=== PATIENT | male | born 1955 | race Caucasian/White ===

== ENCOUNTER → 2017-12-10 13:48 | Outpatient (CLI) | payer BC, SELFPAY ==
[2017-12-10 16:01] LABS: Prostate Specific Ag Screen 17.4 ng/mL (0.0-4.0)
== END ==
PROVIDERS: PCP Family Medicine; Visit Provider Urology
DX: Z12.5 Encounter for screening for malignant neoplasm of prostate (principal)
CPT/HCPCS: 36415; G0103

== ENCOUNTER → 2018-01-21 08:38 | Outpatient (CLI) | payer BC, SELFPAY ==
[2018-01-21 10:11] LABS: Prostate Specific Ag, Diagnost 11.32 ng/mL (0.0-4.0)
== END ==
PROVIDERS: Visit Provider Urology
DX: R97.20 Elevated prostate specific antigen [PSA] (principal)
CPT/HCPCS: 36415; 84153

== ENCOUNTER → 2018-01-22 07:46 | Outpatient (CLI) | payer BC, SELFPAY | PROVIDERS: Family Provider Family Medicine; PCP Family Medicine; Visit Provider Family Medicine | DX: I25.10 Atherosclerotic heart disease of native coronary artery without angina pectoris (principal) | CPT/HCPCS: 93017 ==

== ENCOUNTER → 2018-05-15 07:42 | Outpatient (CLI) | payer BC, SELFPAY ==
[2018-05-15 09:50] LABS: Prostate Specific Ag Screen 7.9 ng/mL (0.0-4.0)
== END ==
PROVIDERS: Visit Provider Urology
DX: R97.20 Elevated prostate specific antigen [PSA] (principal)
CPT/HCPCS: 36415; G0103

== ENCOUNTER → 2018-08-05 11:37 | Outpatient (CLI) | payer MEDICARE, BC, SELFPAY ==
[2018-08-06 11:35] LABS: PSA, Free 1.48 ng/mL; Prostate Specific Ag 6.3 ng/mL (0.0-4.0)
== END ==
PROVIDERS: PCP Family Medicine; Visit Provider Urology
DX: N40.1 Benign prostatic hyperplasia with lower urinary tract symptoms (principal); R97.20 Elevated prostate specific antigen [PSA]
CPT/HCPCS: 36415; 84153; 84154

== ENCOUNTER → 2018-11-11 11:12 | Outpatient (CLI) | payer MEDICARE, BC, SELFPAY ==
[2018-11-12 10:32] LABS: PSA, Free 1.67 ng/mL; Prostate Specific Ag 7.7 ng/mL (0.0-4.0)
== END ==
PROVIDERS: Visit Provider Urology
DX: R97.20 Elevated prostate specific antigen [PSA] (principal)
CPT/HCPCS: 36415; 84153; 84154

== ENCOUNTER → 2018-11-20 08:52 | Outpatient (CLI) | payer MEDICARE, BC, SELFPAY ==
[2018-11-20 10:48] LABS: Alanine Aminotransferase 33 U/L (12-78); Albumin Level 3.7 gm/dL (3.4-5.0); Alkaline Phosphatase 86 U/L (46-116); Aspartate Amino Transferase 25 U/L (15-37); Bilirubin,Direct 0.1 mg/dL (0.0-0.2); Bilirubin,Indirect 0.2 mg/dL (0.0-0.9); Bilirubin,Total 0.3 mg/dL (0.2-1.0); Chol/HDL Ratio 4.9 (1-3.5); Cholesterol 132 mg/dL (140-200); HDL Cholesterol 27 mg/dL (27-67); LDL Cholesterol 56 mg/dL (0-130); Total Protein,Serum 6.7 gm/dL (6.4-8.2); Triglycerides 245 mg/dL (30-200); VLDL Cholesterol 49 mg/dL (0-40)
== END ==
PROVIDERS: Visit Provider Urology
DX: E78.5 Hyperlipidemia, unspecified (principal); I11.9 Hypertensive heart disease without heart failure; I25.10 Atherosclerotic heart disease of native coronary artery without angina pectoris; I42.9 Cardiomyopathy, unspecified; I25.2 Old myocardial infarction
CPT/HCPCS: 36415; 80061; 80076

== ENCOUNTER → 2018-11-21 09:53 | Outpatient (CLI) | payer MEDICARE, BC, SELFPAY ==
--- NOTE | 2018-11-21 09:57 | CA_ITS ---
PROCEDURE: 2-D M-mode and color Doppler study INDICATIONS FOR THE TEST: Chest pain COPD Heart Murmur Tobacco Smoking Palpitations Fatigue Syncope Edema Hypertension+Diabetes Mellitus Rheumatic Fever SOB+DUPONT Obesity Hyperlipidemia+ Family History HD Additional History PACER,HX CM PATIENT INFORMATION HEIGHT: 70 WEIGHT:220 GENDER: Male B/P:114/72 2-D/M-MODE INTERPRETATION: 2-D MEASUREMENTS OBSERVED VALUES IN CMS Right Ventricular Dimension (RVDd) 2.6 Interventricular Septum (Thickness)(IVsd) 1.0 Left Ventricular Internal Dimensions(LVIDd) 5.9 Left Ventricular Posterior Wall (Thickness)(LVPWd) 0.8 Aortic Root 3.6 Aortic Cusp Separation 2.1 Left Atrial Dimensions (LAD) 4.5 2D 1. 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 2. The right atrium and right ventricle are mildly enlarged with normal contractility, there is pacemaker lead seen right ventricle. 3. The aortic valve is minimally thickened and fibrosed. 4. The mitral and tricuspid valve leaflets are minimally thickened and calcified. 5.The pulmonic valve is poorly visualized. 6. No significant pericardial effusion noted. DOPPLER INTERROGATION: Doppler interrogation of the aortic, mitral and tricuspid valve shows presence of mild mitral and tricuspid regurgitation, tricuspid regurgitant jet velocity is inadequate for calculation of the right ventricular systolic pressure, diastolic dysfunction seen with tissue Doppler evidence of raised left atrial pressure. CONCLUSION: 1. 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 Grade 1 diastolic dysfunction seen with tissue Doppler evidence of raised left atrial pressure. 2. Mild mitral and tricuspid regurgitation 3. No significant pericardial effusion noted.
== END ==
PROVIDERS: PCP Family Medicine; Visit Provider Internal Medicine
DX: I25.2 Old myocardial infarction (principal)
CPT/HCPCS: 93306

== ENCOUNTER → 2018-12-05 11:46 | Outpatient (CLI) | payer MEDICARE, BC, SELFPAY ==
--- NOTE | 2018-12-05 11:49 | NM_ITS ---
History and Indications: Coronary artery disease, previous DC, tobacco use, family history, shortness of breath, fatigue and abnormal echo Procedure: Patient received a 0.4 mg of intravenous Lexiscan, resting heart rate was 70 bpm, resting blood pressure 108/74, with Lexiscan heart rate achieved was 82 bpm, which is less than 85% of the maximum predicted heart rate and a blood pressure was 84/47. Lexiscan patient denied any complained of chest pain or shortness of breath. Electrocardiogram: Resting echocardiogram showed sinus rhythm inferior infarct age indeterminate, with Lexiscan there is less than 1.[address] segment depression noted from the baseline EKG. The EKG portion of the Lexiscan Myoview is nondiagnostic. Cardiac stress and resting SPECT images: Headaches stress and resting SPECT images were obtained using technetium 99 Myoview 31.4 mCi at stress and 10.2 degrees at rest. Gated SPECT further analysis of segmental wall motion and calculation of ejection fraction. Cardiac stress and the suspect images show a fixed defect involving the inferior and posterobasal wall consistent with area of myocardial scarring without significant howard-infarct ischemia, computer derived ejection fraction is 53% with marked hypokinesis involving the inferior and posterobasal wall, right ventricle is normal size and contractility. Conclusion: 1. The EKG portion of the Lexiscan Myoview is nondiagnostic. 2. Scintigraphic evidence of myocardial scarring involving the inferior and posterobasal wall without significant howard-infarct ischemia, computer derived ejection fraction is 53% segmental wall motion abnormality described above, right ventricle is normal size and contractility. 3. Abnormal Lexiscan Myoview study.
--- NOTE | 2018-12-05 14:03 | HMH.ITSHM ---
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 []fenofibrate lipitor bisoprolol tamsulosin aspirin plavix finasteride pantoprazole allopurinol
== END ==
PROVIDERS: PCP Family Medicine; Visit Provider Internal Medicine
DX: I25.2 Old myocardial infarction (principal)
CPT/HCPCS: 78452; 93017; A9502; J2785

== ENCOUNTER → 2019-02-17 11:15 | Outpatient (CLI) | payer MEDICARE, BC, SELFPAY ==
[2019-02-17 12:52] LABS: Prostate Specific Ag, Diagnost 7.14 ng/mL (0.0-4.0)
== END ==
PROVIDERS: Visit Provider Urology
DX: R97.20 Elevated prostate specific antigen [PSA] (principal)
CPT/HCPCS: 36415; 84153

== ENCOUNTER → 2019-05-22 07:16 | Outpatient (CLI) | payer MEDICARE, BC, SELFPAY ==
[2019-05-22 08:24] LABS: Alanine Aminotransferase 26 U/L (12-78); Bilirubin,Direct 0.1 mg/dL (0.0-0.2); Blood Urea Nitrogen 20 mg/dL (7-18); Potassium 4.2 mmoL/L (3.5-5.1); Total Protein,Serum 6.3 gm/dL (6.4-8.2); Triglycerides 75 mg/dL (30-200); VLDL Cholesterol 15 mg/dL (0-40)
[2019-05-22 08:25] LABS: Albumin Level 3.6 gm/dL (3.4-5.0)
[2019-05-22 08:40] LABS: Alkaline Phosphatase 59 U/L (46-116); Anion Gap 10.2 mEq/L (5-15); Aspartate Amino Transferase 22 U/L (15-37); Bilirubin,Indirect 0.3 mg/dL (0.0-0.9); Bilirubin,Total 0.4 mg/dL (0.2-1.0); Calcium 8.6 mg/dL (8.5-10.1); Carbon Dioxide 28 mmol/L (21.0-32.0); Chloride 109 mmol/L (98-107); Chol/HDL Ratio 3.2 (1-3.5); Cholesterol 114 mg/dL (140-200); Creatinine,Serum 1.49 mg/dL (0.70-1.30); Estimated Glomerular Filt Rate 47 ml/min (>60); GFR (African American) 57 ML/MIN (>60); Glucose 89 mg/dL (74-106); HDL Cholesterol 36 mg/dL (27-67); LDL Cholesterol 63 mg/dL (0-130); Sodium 143 mmol/L (136-145)
== END ==
PROVIDERS: Visit Provider Urology
DX: I11.9 Hypertensive heart disease without heart failure; I25.10 Atherosclerotic heart disease of native coronary artery without angina pectoris; E78.5 Hyperlipidemia, unspecified; I25.2 Old myocardial infarction; Z95.5 Presence of coronary angioplasty implant and graft
CPT/HCPCS: 36415; 80048; 80061; 80076

== ENCOUNTER → 2019-08-25 12:00 | Outpatient (CLI) | payer MEDICARE, BC, SELFPAY ==
[2019-08-25 17:02] LABS: Prostate Specific Ag, Diagnost 6.92 ng/mL (0.0-4.0)
== END ==
PROVIDERS: Visit Provider Urology
DX: R97.20 Elevated prostate specific antigen [PSA] (principal)
CPT/HCPCS: 36415; 84153

== ENCOUNTER → 2019-09-21 10:03 | Outpatient (CLI) | payer MEDICARE, BC, SELFPAY ==
--- NOTE | 2019-09-21 10:10 | XR_ITS ---
PROCEDURE: XR CHEST 2V CLINICAL HISTORY: pain at pacer site COMPARISON: CXR1 CHEST-PORTABLE from 11/28/2014 CXR CHEST(2 VIEWS-NOT PORTABLE) from 04/02/2015 FINDINGS: The cardiomediastinal silhouette and pulmonary vascularity are within normal limits. There is a bipolar pacemaker present from the left subclavian approach. The leads are in good position. No significant change in the positioning of the pacemaker since 04/02/2015. Calcified granuloma is present in the right lower lobe. The remaining lungs are clear. No acute bony finding. IMPRESSION: No change with no acute finding. Pacemaker present with no obvious complications Dictated by: Rod Campbell MD 09/21/2019 12:41 Electronically signed by Rod Campbell MD in [place] 09/21/2019 12:41
== END ==
PROVIDERS: PCP Family Medicine; Visit Provider Internal Medicine
DX: R52 Pain, unspecified (principal); Z95.0 Presence of cardiac pacemaker
CPT/HCPCS: 71046

== ENCOUNTER → 2019-12-15 10:10 | Outpatient (CLI) | payer MEDICARE, BC, SELFPAY ==
--- NOTE | 2019-12-15 10:14 | XR_ITS ---
PROCEDURE: XR KUB CLINICAL INDICATION: kidney stones Follow-up kidney stone COMPARISON: CT ABDOMEN PELVIS WO CON from 12/05/2019 FINDINGS: Previously there was a mid ureteral stone on the left which is no longer apparent. There is a small calcific density overlying the mid aspect of the left kidney at 3 mm consistent with left nephrolithiasis. IMPRESSION: Left nephrolithiasis Dictated by: Rod Campbell MD 12/15/2019 11:54 Electronically signed by Rod Campbell MD in [place] 12/15/2019 11:54
[2020-01-08 18:20] LABS: Specimen Type NOT PROVIDED
[2020-01-08 18:21] LABS: Composition SEE BELOW:
[2020-01-08 18:22] LABS: Photo TO FOLLOW
== END ==
PROVIDERS: PCP Family Medicine; Visit Provider Urology
DX: N20.0 Calculus of kidney (principal)
CPT/HCPCS: 74018; 82370; 87086; 87088; 87186

== ENCOUNTER → 2019-12-15 14:56 | Outpatient (CLI) | payer MEDICARE, BC, SELFPAY | PROVIDERS: Visit Provider Urology | DX: N20.0 Calculus of kidney (principal) | CPT/HCPCS: 74018; 82370; 87086; 87088; 87186 ==

== ENCOUNTER → 2019-12-29 08:31 | Outpatient (CLI) | payer MEDICARE, BC, SELFPAY ==
--- NOTE | 2019-12-29 08:34 | XR_ITS ---
PROCEDURE: XR KUB CLINICAL INDICATION: LT KIDNEY STONE COMPARISON: CT ABDOMEN PELVIS WO CON from 12/05/2019 XR KUB from 12/15/2019 FINDINGS: There is a small calcific density over the lower pole of the left kidney consistent with a 3 mm renal stone. A thin linear calcific density is present overlying the sacrum on the left probably related to a vascular calcification. No definite ureteral calculi. IMPRESSION: Left nephrolithiasis Dictated by: Rod Campbell MD 12/29/2019 12:15 Electronically signed by Rod Campbell MD in [place] 12/29/2019 12:15
[2019-12-29 12:12] LABS: Chloride 104 mmol/L (98-107); Potassium 4.6 mmoL/L (3.5-5.1); Sodium 138 mmol/L (136-145)
[2019-12-29 12:14] LABS: Blood Urea Nitrogen 20 mg/dl (9-20); Estimated Glomerular Filt Rate 43 ml/min (>60); GFR (African American) 53 ML/MIN (>60)
[2019-12-29 12:15] LABS: Anion Gap 11.6 mEq/L (5-15); Calcium 9.3 mg/dl (8.4-10.2); Carbon Dioxide 27 mmol/L (22.0-30.0); Glucose 79 mg/dl (74-100)
== END ==
PROVIDERS: PCP Family Medicine; Visit Provider Urology
DX: N20.0 Calculus of kidney (principal)
CPT/HCPCS: 36415; 74018; 80048

== ENCOUNTER → 2020-02-26 09:46 | Outpatient (CLI) | payer MEDICARE, BC, SELFPAY ==
[2020-02-27 11:17] LABS: PSA, Free 1.91 ng/mL; Prostate Specific Ag 8.2 ng/mL (0.0-4.0)
== END ==
PROVIDERS: Visit Provider Urology
DX: R97.20 Elevated prostate specific antigen [PSA] (principal)
CPT/HCPCS: 36415; 84153; 84154

== ENCOUNTER → 2020-03-24 10:05 | Outpatient (CLI) | payer MEDICARE, BC, SELFPAY ==
[2020-03-24 10:33] LABS: Blood Urea Nitrogen 15 mg/dl (9-20)
[2020-03-24 10:34] LABS: Estimated Glomerular Filt Rate 55 ml/min (>60); GFR (African American) 67 ML/MIN (>60)
--- NOTE | 2020-03-24 10:51 | CT_ITS ---
PROCEDURE: CT HEAD/BRAIN WO/W CON CLINICAL INDICATION: poss left acoustic neuroma Hearing loss in the left ear new onset COMPARISON: CXR CHEST(2 VIEWS-NOT PORTABLE) from 04/02/2015 TECHNIQUE: IV Contrast: 100ML OPITRAY 320 The Axial images obtained. All CT scans at the facility use one or more dose reduction, viz: automated exposure control, ma/kV adjustment per patient size (including targeted exams where dose is matched to indication, i.e. head), or iterative reconstruction technique. FINDINGS: No midline shift, mass effect, intracranial hemorrhage, hydrocephalus, or extra-axial fluid collection is evident. No enhancing lesions are evident.. There is no evidence a CP angle mass. The acoustic foramen are symmetric. The calvarium has an unremarkable appearance. No mastoid effusion there is complete opacification of the right maxillary sinus with some increased density of the opacified sinus and enhancement consistent with chronic inflammatory changes. IMPRESSION: 1. Negative CT head without and with contrast. No evidence of acoustic neuroma. 2. Chronic right maxillary sinusitis Dictated by: Rod Campbell MD 03/24/2020 13:04 Electronically signed by Rod Campbell MD in [place] 03/24/2020 13:04
== END ==
PROVIDERS: PCP Family Medicine; Visit Provider Otolaryngology
DX: D33.3 Benign neoplasm of cranial nerves (principal); H93.12 Tinnitus, left ear
CPT/HCPCS: 36415; 70470; 82565; 84520; Q9967

== ENCOUNTER → 2020-04-04 15:59 | Outpatient (CLI) | payer MEDICARE, BC, SELFPAY | PROVIDERS: Visit Provider Urology | DX: N39.0 Urinary tract infection, site not specified (principal) | CPT/HCPCS: 87086; 87088; 87186 ==

== ENCOUNTER → 2020-04-15 09:01 | Outpatient (CLI) | payer MEDICARE, BC, SELFPAY ==
[2020-04-15 10:33] LABS: Coronavirus 19 IgG Antibody Negative (Negative); Coronavirus 19 IgM Antibody Negative (Negative)
== END ==
PROVIDERS: Visit Provider Internal Medicine Gastroenterology
DX: Z01.818 Encounter for other preprocedural examination (principal)
CPT/HCPCS: 36415; 86328

== ENCOUNTER 2020-04-18 10:56 | Day surgery (SDC) | payer MEDICARE, BC, SELFPAY ==
[2020-04-14 10:24] VITALS: BMI 28.7
[2020-04-18 11:08] VITALS: BP 102/69; PULSE 69; RESP 18; TEMP 36.2; O2SAT 97
[2020-04-18 11:32] VITALS: O2SAT 99
--- NOTE | 2020-04-18 11:41 | HMH.ANESCL ---
[facility] Anesthesia Checklist - Patient Identification Patient Identification: Arm Band - Structural Data Admitted From: Home Planned Operative Procedure/s: colonoscopy Consent for Planned Operative Procedure(s) Verified: Yes Verified Documents: Surgical Consent, History and Physical - NPO Status Verified Time NPO: 00:00 - Additional verifications Anesthesia Reactions: No Hx Blood Transfusions: No Blood Transfusion Reaction: No - Airway Assessment C-Spine Mobility Assessed: Yes (mp2) TMJ Mobility Assessed: Yes Dentition: Good Dentition - Neurological Assessment Level of Consciousness: Awake, Alert - Anesthesia Plan Anesthesia Risk discussed: Yes Anesthesia Plan: Verified ASA Class: III Anesthesia Type: MAC [facility] History I have reviewed the patient's past medical history: Yes Medical History: Reports:: Coronary Artery Disease, Hyperlipidemia, Internal Pacemaker, Kidney Stones, Myocardial Infarction Denies:: Cancer, Diabetes Mellitus Type 1, Diabetes Mellitus Type 2, Hypertension, MRSA, Seizures *Have you ever received a pneumonia vaccine?: Yes *Have you received a flu vaccine this season?: Yes Other Medical History: Reports: Arthritis, Other (PACEMAKER). Denies: Blood Transfusion Reaction Anesthesia experience/problems:: nac Other Surgeries: Yes: Angioplasty, Colonoscopy, Pacemaker, Other (PACEMAKER) Amputation: No Fractures: No - *Social History Educational Level: Completed High School Smoking Status: Never smoker Alcohol Intake: never Alcohol Intake Frequency:: other Substance Use Type: denies use *Occupational Status:: retired Housing: house Household Members: spouse *Travel in the last 8 weeks: None Family Hx:: Cancer, Heart Attack
--- NOTE | 2020-04-18 12:05 | P.PCN_ITS ---
[facility] Procedure Note Procedure Note:: Colonoscopy Procedure Report: Colonoscopy with cold snare polypectomy Endoscopist: Jad Ramires II, MD Referring physician: Rolo Villalobos MD Date of Procedure: April 18, 2020 Equipment: Olympus 180 variable stiffness pediatric colonoscope Sedation: MAC sedation Indication: Mr. Bernard is a 64-year-old gentleman who is here for follow-up screening/surveillance colonoscopy. The patient does have a personal history of colon polyps. He has had 5 or 6 colonoscopies since the age of 48. His last c olonoscopy was in October 2016 and he had a single polyp (hyperplastic polyp x1) removed. He does state that his paternal grandmother had colon cancer. He reports no abdominal pain, weight loss, change in his bowel habits or rectal bleeding. Procedure: Prior to the procedure, a history and physical exam was performed, and patient's medications and allergies were reviewed. The risks, benefits and alternatives of the sedation and procedure were discussed with the patient. All questions were answered and informed consent was obtained. The patient was brought to the procedure room. Patient identification and proposed procedure were verified by the physician and the nurse. The patient was placed in a left lateral decubitus position and the scope was passed under direct vision. Throughout the procedure, the patient's blood pressure, pulse, and oxygen saturations were monitored continuously. The colonoscopy was accomplished without difficulty. The patient tolerated the procedure well. Findings: On digital rectal examination there was normal rectal tone. There were no external hemorrhoids. The prostate was 2+, mildly asymmetric on right upper/lateral margin but without significant firmness or nodules. The colonoscope was introduced through the anal canal to the rectum and advanced to the cecum. The ileocecal valve and appendiceal orifice were identified. The scope was advanced a short distance into the ileum which appeared grossly normal. The scope was then withdrawn into the colon. There were 2 colon polyps (cecum x1 (6 mm) and transverse x1 (3 mm)) which were removed via cold snare polypectomy. There were scattered diverticuli throughout the descending and sigmoid colon (LEFT colon). The rectum itself was normal. Upon retroflexion within the rectum there were grade 1-2 internal hemorrhoids. The preparation was excellent throughout with Casar Preparation Score of 9. The cecal time was 12 minutes. Impression: 1. Colonic polyps x2 2. Left-sided diverticulosis 3. Mild prostate asymmetry 4. Grade 1-2 internal hemorrhoids Plan: I will follow up the polyp pathology and recommend repeat colonoscopy again in 5-7 years based upon the polyp histology. I would encourage bulk fiber supplementation on a long-term daily maintenance basis.
[2020-04-18 12:07] VITALS: BP 80/55; PULSE 70; RESP 18; TEMP 36.2; O2SAT 91
[2020-04-18 12:27] VITALS: BP 81/53; BP 88/56; PULSE 70; RESP 18; O2SAT 92; O2SAT 93
[2020-04-18 12:37] VITALS: BP 107/68; PULSE 70; RESP 18; O2SAT 93
--- NOTE | 2020-04-18 12:47 | PC.NURSE ---
recommended Konsul daily.
[2020-04-18 12:50] VITALS: BP 107/64; PULSE 68; RESP 18; O2SAT 94
== END 2020-04-18 12:50 | disposition home or self-care (01) ==
LOC: OUTP 10:57
PROVIDERS: PCP Family Medicine; Visit Provider Internal Medicine Gastroenterology
PROC: 0DJD8ZZ Inspection of Lower Intestinal Tract, Via Natural or Artificial Opening Endoscopic (ICD-10-PCS; CPT 45378; principal; 2020-04-18 13:00)
DX: Z12.11 Encounter for screening for malignant neoplasm of colon (principal); Z86.010 Personal history of colon polyps; K63.5 Polyp of colon; K57.30 Diverticulosis of large intestine without perforation or abscess without bleeding; K64.0 First degree hemorrhoids; I10 Essential (primary) hypertension; E78.5 Hyperlipidemia, unspecified; I25.10 Atherosclerotic heart disease of native coronary artery without angina pectoris; Z95.0 Presence of cardiac pacemaker; Z95.818 Presence of other cardiac implants and grafts
CPT/HCPCS: 45385; 88305

== ENCOUNTER → 2020-05-09 11:23 | Outpatient (CLI) | payer MEDICARE, BC, SELFPAY ==
--- NOTE | 2020-05-09 11:50 | XR_ITS ---
PROCEDURE: XR LUMBAR SPINE MIN 4V CLINICAL INDICATION: HIP PAIN ACUTE Low back pain on the left COMPARISON: CT ABDOMEN PELVIS WO CON from 12/05/2019 FINDINGS: There is normal alignment. No fracture or dislocation is evident. There is mild degenerative disc disease at L2-L3 and L5-S1. Mild facet hypertrophic changes are present at L5-S1. No fracture or dislocation. Mild angulation posteriorly of the coccyx which could be due to an old injury. IMPRESSION: Mild degenerative changes, no acute finding Dictated by: Rod Campbell MD 05/09/2020 12:27 Electronically signed by Rod Campbell MD in [place] 05/09/2020 12:27
--- NOTE | 2020-05-09 11:50 | XR_ITS ---
PROCEDURE: XR HIP LT 2-3V W/PELVIS CLINICAL INDICATION: HIP PAIN, ACUTE COMPARISON: No exams were available for comparison FINDINGS: There are minimal degenerative changes of the left hip with slight decrease in the hip joint space superiorly and minimal osteophyte formation along the acetabulum. No fracture or dislocation. No lytic or blastic change. IMPRESSION: Mild degenerative change Dictated by: Rod Campbell MD 05/09/2020 12:28 Electronically signed by Rod Campbell MD in [place] 05/09/2020 12:28
== END ==
PROVIDERS: PCP Family Medicine; Visit Provider Nurse Practitioner Family
DX: M25.552 Pain in left hip (principal); M54.5 Low back pain
CPT/HCPCS: 72110; 73502

== ENCOUNTER → 2020-05-13 08:21 | Outpatient (CLI) | payer MEDICARE, BC, SELFPAY ==
[2020-05-13 10:48] LABS: Coronavirus 19 IgG Antibody Negative (Negative); Coronavirus 19 IgM Antibody Negative (Negative)
== END ==
PROVIDERS: Visit Provider Urology
DX: Z01.818 Encounter for other preprocedural examination (principal)
CPT/HCPCS: 36415; 86328

== ENCOUNTER 2020-05-16 07:33 | Day surgery (SDC) | payer MEDICARE, BC, SELFPAY ==
[2020-05-16 07:55] VITALS: BMI 28.7
[2020-05-16 07:56] VITALS: BP 107/81; PULSE 70; RESP 18; TEMP 36.3; O2SAT 97
--- NOTE | 2020-05-16 08:54 | P.PN_ITS ---
[facility] Anesthesia Checklist - Patient Identification Patient Identification: Arm Band, Verbal (Name & ) - Structural Data Admitted From: Home Planned Operative Procedure/s: prostate bx Consent for Planned Operative Procedure(s) Verified: Yes Verified Documents: History and Physical - NPO Status Verified Time NPO: 00:00 - Chart Verification Results Verified: CBC, BMP - Additional verifications Patient : No Anesthesia Reactions: No Hx Blood Transfusions: No Blood Transfusion Reaction: No Cephalosporin Allergy: No Previous Colonoscopy: Yes - Cardiovascular Assessment Heart Sounds: S1 & S2 Pulse Strength: Baseline Pulse Rhythm: Regular Peripheral Edema: No - Airway Assessment C-Spine Mobility Assessed: Yes TMJ Mobility Assessed: Yes Dentition: Good Dentition - Neurological Assessment Level of Consciousness: Awake, Alert, Appropriate Hx Seizures: No Numbness or tingling in extremities: No - Anesthesia Plan Anesthesia Risk discussed: Yes Anesthesia Plan: Verified ASA Class: III Anesthesia Type: MAC [facility] History I have reviewed the patient's past medical history: Yes Medical History: Reports:: Coronary Artery Disease, Hyperlipidemia, Internal Pacemaker, Kidney Stones, Myocardial Infarction Denies:: Cancer, Diabetes Mellitus Type 1, Diabetes Mellitus Type 2, Hypertension, MRSA, Seizures *Have you ever received a pneumonia vaccine?: Yes *Have you received a flu vaccine this season?: Yes Other Medical History: Reports: Arthritis, Other (PACEMAKER). Denies: Blood Transfusion Reaction Anesthesia experience/problems:: none Other Surgeries: Yes: No Previous Surgery, Angioplasty, Colonoscopy, Pacemaker, Other (PACEMAKER) Amputation: No Fractures: No - *Social History Last grade of school completed: 11th or 12th Smoking Status: Never smoker Alcohol Intake: never Alcohol Intake Frequency:: other Substance Use Type: denies use *Occupational Status:: retired Housing: house Household Members: spouse *Travel in the last 8 weeks: None Family Hx:: Cancer, Heart Attack
[2020-05-16 09:58] VITALS: BP 117/75; PULSE 70; RESP 18; TEMP 36.2; O2SAT 96
[2020-05-16 10:08] VITALS: BP 127/86; PULSE 71; RESP 18; O2SAT 96
[2020-05-16 10:18] VITALS: BP 128/81; PULSE 70; RESP 18; O2SAT 97
[2020-05-16 10:28] VITALS: BP 123/79; PULSE 69; RESP 18; O2SAT 96
--- NOTE | 2020-05-16 12:15 | HMH.OPNOTE ---
Date of procedure: 05/16/20 Pre-op Diagnosis:: Elevated PSA Post-op Diagnosis:: Elevated PSA Procedure performed:: Prostate biopsy with transrectal ultrasound guidance Surgeon:: Tom Ralph MD HORSE FARM MANAGER:: Teofilo Walker Anesthesia: MAC Estimated blood loss (mL): 2 Clinical Note:: 64-year-old white male with elevated PSA presents for transrectal ultrasound and prostate biopsy. Operative findings:: Prostate measured at 46 cm?. There is no evidence of hypoechoic or hyperechoic lesions. There is some firmness to the right side of the prostate on digital rectal exam. Operative note:: Patient taken to the operating room after informed consent was obtained. Was placed on the operating room table and monitored anesthesia care administered. He was then placed into the left lateral decubitus position. He was on oral antibiotics prior to the procedure as instructed. He was not given instructions for an enema and we discussed that this is an optional preoperative measure. Digital rectal examination showed a small area of firmness on the right side of the prostate. Transrectal ultrasound was placed into the rectum and the prostate was easily visualized. It was measured at 46 cm?. There is no evidence of hypoechoic or hyperechoic lesions. Local anesthetic placed into each neurovascular bundle and 12 biopsies been taken in a systematic fashion. There is minimal bleeding present. The probe removed and the patient tolerated procedure well. There were no complications. He was discharged to recovery room with routine instructions. Patient is to call me on for the results. Condition: stable Disposition: same day Specimens:: Prostate biopsies x12 Complications:: None
== END 2020-05-16 10:35 | disposition home or self-care (01) ==
LOC: OR 07:36
PROVIDERS: PCP Family Medicine; Visit Provider Urology
DX: R97.20 Elevated prostate specific antigen [PSA] (principal); N18.9 Chronic kidney disease, unspecified; I25.10 Atherosclerotic heart disease of native coronary artery without angina pectoris; M19.90 Unspecified osteoarthritis, unspecified site; Z87.442 Personal history of urinary calculi; Z79.82 Long term (current) use of aspirin; Z79.899 Other long term (current) drug therapy; Z95.0 Presence of cardiac pacemaker
CPT/HCPCS: 55700; 76942; 88305

== ENCOUNTER → 2020-05-31 07:54 | Outpatient (CLI) | payer MEDICARE, BC, SELFPAY ==
[2020-05-31 08:34] LABS: Basophils % 1.1 % (0.1-2.0); Eosinophils # 0.2 K/mm3 (0.0-0.4); Eosinophils % 3.7 % (0.1-12.0); Hematocrit 46.1 % (42.0-52.0); Hemoglobin 15.7 g/dL (14.1-18.0); Lymphocytes # 1.5 K/mm3 (0.7-4.5); Lymphocytes % 36.5 % (10-50); Mean Corpuscular Hemoglobin 33.1 pg (27.0-31.2); Mean Corpuscular Volume 97.1 fl (80-94); Monocytes # 0.3 K/mm3 (0.1-1.0); Monocytes % 6.6 % (1.7-9.3); Neutrophils # 2.1 K/mm3 (1.8-7.8); Platelet Count 177 K/mm3 (142-424); Red Blood Count 4.75 M/mm3 (4.60-6.20); Red Cell Distribution Width 13.5 % (11.5-17.5)
[2020-05-31 09:06] LABS: Alanine Aminotransferase 22 U/L (12-78); Alkaline Phosphatase 47 U/L (38-126); Aspartate Amino Transferase 33 U/L (17-59); Bilirubin,Direct 0.1 mg/dl (0.0-0.4); Bilirubin,Indirect 0.5 mg/dL (0.0-0.9); Bilirubin,Total 0.6 mg/dl (0.2-1.3); Bilirubin,Unconjugated 0.6 mg/dL (0.0-1.1)
[2020-05-31 09:07] LABS: Albumin Level 4.2 g/dl (3.5-5.0); Chol/HDL Ratio 3.1 (1-3.5); Cholesterol 154 mg/dl (140-200); HDL Cholesterol 50 mg/dl (40-60); Total Protein,Serum 6.7 g/dl (6.3-8.2); Triglycerides 124 mg/dl (30-150); VLDL Cholesterol 25 mg/dL (0-40)
[2020-05-31 09:10] LABS: Albumin Level 4.3 g/dl (3.5-5.0); Anion Gap 13.7 mEq/L (5-15); Blood Urea Nitrogen 22 mg/dl (9-20); Calcium 9.4 mg/dl (8.4-10.2); Carbon Dioxide 27 mmol/L (22.0-30.0); Chloride 105 mmol/L (98-107); Estimated Glomerular Filt Rate 51 ml/min (>60); GFR (African American) 61 ML/MIN (>60); Glucose 100 mg/dl (74-100); Phosphorous 3.4 mg/dl (2.5-4.5); Potassium 4.7 mmoL/L (3.5-5.1); Sodium 141 mmol/L (136-145)
[2020-05-31 09:18] LABS: Direct LDL Cholesterol 92.17 mg/dL (100-129)
[2020-05-31 09:27] LABS: 25-OH Vitamin D, Total 34.5 ng/mL (30-100)
[2020-05-31 10:35] LABS: Microscopic, Urine URINE MICROSCOPIC (MICROSCOPIC)
[2020-05-31 10:48] LABS: Appearance,Urine CLEAR (Clear); Bilirubin,Urine Negative (Negative); Blood, Urine Negative (Negative); Color,Urine YELLOW (Yellow); Glucose,Urine (UA) Negative (Negative); Ketones,Urine Negative (Negative); Leukocyte Esterase,Urine Negative (Negative); Nitrate,Urine Negative (Negative); PH,Urine 5.5 (5.0-8.5); Protein,Urine Negative (Negative); Specific Gravity, Urine 1.025 (1.005-1.030); Urobilinogen,Urine 0.2 EU/dl (0.2)
[2020-05-31 11:05] LABS: Squamous Epithelial Cell,Urine Occasional #/hpf (0-5)
[2020-05-31 11:18] LABS: Creatinine,Urine Random 138 mg/dL (Not Estab.)
== END ==
PROVIDERS: Internal Medicine Nephrology; PCP Family Medicine; Visit Provider Nurse Practitioner Family
DX: E11.9 Type 2 diabetes mellitus without complications (principal); E78.2 Mixed hyperlipidemia; I11.9 Hypertensive heart disease without heart failure; N18.3 Chronic kidney disease, stage 3 (moderate)
CPT/HCPCS: 36415; 80061; 80069; 80076; 81001; 82306; 82570; 83970; 84155; 85025

== ENCOUNTER → 2020-06-17 13:33 | Outpatient (CLI) | payer MEDICARE, BC, SELFPAY ==
--- NOTE | 2020-06-17 13:36 | CT_ITS ---
PROCEDURE: CT LUMBAR SPINE WO CON CLINICAL HISTORY: L LUMBAR RADICULOPATHY Left-sided low back pain, left-sided sciatic COMPARISON: CR XR LUMBAR SPINE MIN 4V from 05/09/2020 TECHNIQUE: Axial images obtained with sagittal and coronal reformats. All CT scans at the facility use one or more dose reduction, viz: automated exposure control, ma/kV adjustment per patient size (including targeted exams where dose is matched to indication, i.e. head), or iterative reconstruction technique. FINDINGS: There is normal alignment. No fracture or dislocation is evident. L2-L3: Minimal bulging disc. L3-L4: Minimal bulging disc. There is somewhat corrugated appearance of the L4 vertebral body which may represent hemangiomatous involvement L4-5: Mild bulging disc slightly eccentric toward the left with mild facet hypertrophic change and mild left lateral recess and foraminal narrowing. There is slight increased soft tissue density within the left neural foramen at this level. This is incompletely evaluated by CT. Consider MRI without and with contrast for further evaluation. L5-S1: Minimal bulging disc with mild degenerative disc disease. There is mild sclerosis of the right SI joint. IMPRESSION: 1. L2-L3: Minimal bulging disc. 2. L3-L4: Minimal bulging disc. There is somewhat corrugated appearance of the L4 vertebral body which may represent hemangiomatous involvement 3. L4-5: Mild bulging disc slightly eccentric toward the left with mild facet hypertrophic change and mild left lateral recess and foraminal narrowing. There is slight increased soft tissue density within the left neural foramen at this level. Differential diagnosis would include an extruded disc versus a nerve sheath tumor. This is incompletely evaluated by CT. Consider MRI without and with contrast for further evaluation. 4. L5-S1: Minimal bulging disc with mild degenerative disc disease. 5. There is mild sclerosis of the right SI joint. Dictated by: Rod Campbell MD 06/17/2020 14:33 Rod Campbell MD in [place] 06/17/2020 14:33
== END ==
PROVIDERS: PCP Family Medicine; Visit Provider Family Medicine
DX: M54.16 Radiculopathy, lumbar region (principal)
CPT/HCPCS: 72131

== ENCOUNTER → 2020-08-26 13:50 | Outpatient (CLI) | payer MEDICARE, BC, SELFPAY ==
[2020-08-28 15:28] LABS: Prostate Specific Ag 5.7 ng/mL (0.0-4.0)
== END ==
PROVIDERS: Visit Provider Urology
DX: R97.20 Elevated prostate specific antigen [PSA] (principal)
CPT/HCPCS: 36415; 84153; 84154

== ENCOUNTER → 2020-09-05 09:46 | Outpatient (CLI) | payer MEDICARE, BC, SELFPAY ==
[2020-09-05 09:49] LABS: Microscopic, Urine URINE MICROSCOPIC (MICROSCOPIC)
[2020-09-05 10:13] LABS: Basophils # 0.1 K/mm3 (0-0.2); Basophils % 1.2 % (0.1-2.0); Eosinophils # 0.2 K/mm3 (0.0-0.4); Eosinophils % 2.4 % (0.1-12.0); Hematocrit 45.8 % (42.0-52.0); Hemoglobin 15.6 g/dL (14.1-18.0); Lymphocytes # 1.4 K/mm3 (0.7-4.5); Lymphocytes % 20.8 % (10-50); Mean Corpuscular Hemoglobin 31.9 pg (27.0-31.2); Mean Corpuscular Volume 93.9 fl (80-94); Mean Platelet Volume 8.5 fl (7.4-10.4); Monocytes # 0.3 K/mm3 (0.1-1.0); Monocytes % 5.1 % (1.7-9.3); Neutrophils # 4.7 K/mm3 (1.8-7.8); Neutrophils % 70.6 % (37.0-80.0); Platelet Count 183 K/mm3 (142-424); Red Blood Count 4.88 M/mm3 (4.60-6.20); Red Cell Distribution Width 13.9 % (11.5-17.5); White Blood Count 6.6 K/mm3 (4.8-10.8)
[2020-09-05 10:20] LABS: Appearance,Urine CLEAR (Clear); Bilirubin,Urine Negative (Negative); Blood, Urine Negative (Negative); Color,Urine YELLOW (Yellow); Glucose,Urine (UA) Negative (Negative); Ketones,Urine Negative (Negative); Leukocyte Esterase,Urine Negative (Negative); Nitrate,Urine Negative (Negative); Protein,Urine Negative (Negative); Urobilinogen,Urine 0.2 EU/dl (0.2)
[2020-09-05 10:22] LABS: Creatinine,Urine Random 97 mg/dL (Not Estab.)
[2020-09-05 10:34] LABS: Chloride 108 mmol/L (98-107); Potassium 3.9 mmoL/L (3.5-5.1); Sodium 141 mmol/L (136-145)
[2020-09-05 10:35] LABS: Albumin Level 4.1 g/dl (3.5-5.0)
[2020-09-05 10:36] LABS: Blood Urea Nitrogen 19 mg/dl (9-20); Estimated Glomerular Filt Rate 55 ml/min (>60); GFR (African American) 67 ML/MIN (>60)
[2020-09-05 10:37] LABS: Anion Gap 9.9 mEq/L (5-15); Calcium 9.2 mg/dl (8.4-10.2); Carbon Dioxide 27 mmol/L (22.0-30.0); Glucose 106 mg/dl (74-100); Phosphorous 2.3 mg/dl (2.5-4.5)
[2020-09-05 11:08] LABS: WBC,Urine Occasional #/hpf (0-3)
== END ==
PROVIDERS: Visit Provider Internal Medicine Nephrology
DX: N18.30 Chronic kidney disease, stage 3 unspecified (principal)
CPT/HCPCS: 36415; 80069; 81001; 82570; 84155; 85025

== ENCOUNTER → 2020-09-12 12:41 | Outpatient (POV) | payer MEDICARE, BC, SELFPAY | PROVIDERS: Visit Provider Internal Medicine Nephrology | DX: Z00.00 Encounter for general adult medical examination without abnormal findings (principal) ==

== ENCOUNTER → 2020-12-19 10:17 | Outpatient (CLI) | payer MEDICARE, BC, SELFPAY | PROVIDERS: PCP Family Medicine; Visit Provider Family Medicine | DX: Z20.822 Contact with and (suspected) exposure to COVID-19 (principal) | CPT/HCPCS: U0003 ==

== ENCOUNTER → 2021-02-24 11:15 | Outpatient (CLI) | payer MEDICARE, BC, SELFPAY ==
[2021-02-25 08:59] LABS: PSA, Free 1.18 ng/mL; Prostate Specific Ag 5.6 ng/mL (0.0-4.0)
== END ==
PROVIDERS: Visit Provider Urology
DX: R97.20 Elevated prostate specific antigen [PSA] (principal)
CPT/HCPCS: 36415; 84153; 84154

== ENCOUNTER → 2021-03-31 07:08 | Outpatient (CLI) | payer MEDICARE, BC, SELFPAY ==
[2021-03-31 07:11] LABS: Microscopic, Urine URINE MICROSCOPIC (MICROSCOPIC)
[2021-03-31 08:53] LABS: Basophils # 0.1 K/mm3 (0-0.2); Basophils % 1.8 % (0.1-2.0); Eosinophils # 0.3 K/mm3 (0.0-0.4); Eosinophils % 6.7 % (0.1-12.0); Hematocrit 47.3 % (42.0-52.0); Hemoglobin 15.8 g/dL (14.1-18.0); Lymphocytes % 40.7 % (10-50); Mean Corpuscular HGB Conc 33.4 g/dL (31.8-35.4); Mean Corpuscular Hemoglobin 31.2 pg (27.0-31.2); Mean Corpuscular Volume 93.6 fl (80-94); Mean Platelet Volume 7.7 fl (7.4-10.4); Monocytes # 0.5 K/mm3 (0.1-1.0); Monocytes % 9.5 % (1.7-9.3); Neutrophils % 41.3 % (37.0-80.0); Platelet Count 172 K/mm3 (142-424); Red Blood Count 5.05 M/mm3 (4.60-6.20); Red Cell Distribution Width 13.6 % (11.5-17.5); White Blood Count 4.8 K/mm3 (4.8-10.8)
[2021-03-31 09:17] LABS: Albumin Level 4.4 g/dl (3.5-5.0); Anion Gap 12.4 mEq/L (5-15); Blood Urea Nitrogen 17 mg/dl (9-20); Calcium 9.2 mg/dl (8.4-10.2); Carbon Dioxide 26 mmol/L (22.0-30.0); Chloride 107 mmol/L (98-107); Estimated Glomerular Filt Rate 51 ml/min (>60); GFR (African American) 61 ML/MIN (>60); Glucose 92 mg/dl (74-100); Phosphorous 3.7 mg/dl (2.5-4.5); Potassium 4.4 mmoL/L (3.5-5.1); Sodium 141 mmol/L (136-145)
[2021-03-31 13:48] LABS: Appearance,Urine CLEAR (Clear); Bilirubin,Urine Negative (Negative); Blood, Urine Negative (Negative); Color,Urine YELLOW (Yellow); Glucose,Urine (UA) Negative (Negative); Ketones,Urine Negative (Negative); Leukocyte Esterase,Urine Negative (Negative); Nitrate,Urine Negative (Negative); Protein,Urine Negative (Negative); Specific Gravity, Urine >= 1.030 (1.005-1.030); Urobilinogen,Urine 0.2 EU/dl (0.2)
[2021-03-31 14:45] LABS: Squamous Epithelial Cell,Urine Occasional #/hpf (0-5)
[2021-03-31 15:53] LABS: Creatinine,Urine Random 178 mg/dL (Not Estab.)
== END ==
PROVIDERS: Visit Provider Internal Medicine Nephrology
DX: N18.30 Chronic kidney disease, stage 3 unspecified (principal)
CPT/HCPCS: 36415; 80069; 81001; 82570; 84155; 85025

== ENCOUNTER → 2021-04-06 15:11 | Outpatient (POV) | payer MEDICARE, BC, SELFPAY | PROVIDERS: Visit Provider Internal Medicine Nephrology | DX: Z00.00 Encounter for general adult medical examination without abnormal findings (principal) ==

== ENCOUNTER → 2021-06-21 13:40 | Outpatient (CLI) | payer MEDICARE, BC, SELFPAY ==
[2021-06-21 14:45] LABS: Alanine Aminotransferase 23 U/L (12-78); Albumin Level 4.1 g/dl (3.5-5.0); Alkaline Phosphatase 56 U/L (38-126); Aspartate Amino Transferase 37 U/L (17-59); Bilirubin,Direct 0.6 mg/dl (0.0-0.4); Bilirubin,Total 0.6 mg/dl (0.2-1.3); Chol/HDL Ratio 4.3 (1-3.5); Cholesterol 154 mg/dl (140-200); HDL Cholesterol 36 mg/dl (40-60); Total Protein,Serum 6.4 g/dl (6.3-8.2); Triglycerides 180 mg/dl (30-150); VLDL Cholesterol 36 mg/dL (0-40)
[2021-06-21 14:57] LABS: Direct LDL Cholesterol 96.23 mg/dL (100-129)
== END ==
PROVIDERS: Visit Provider Urology
DX: E78.5 Hyperlipidemia, unspecified (principal); I11.9 Hypertensive heart disease without heart failure; I25.10 Atherosclerotic heart disease of native coronary artery without angina pectoris; I42.9 Cardiomyopathy, unspecified; Z95.0 Presence of cardiac pacemaker; Z95.5 Presence of coronary angioplasty implant and graft
CPT/HCPCS: 80061; 80076

== ENCOUNTER → 2021-06-27 09:12 | Outpatient (CLI) | payer MEDICARE, BC, SELFPAY ==
--- NOTE | 2021-06-27 | CA_ITS ---
APPROVED REPORT Exam: Exercise Treadmill Technologist: Susan Lentz Ht: 5 ft 7 in Wt: 216 lbs BSA: 2.09 m2 HR: 70 bpm BP: 113/76 mmHg Indications: CAD Medical History Medications: Aspirin,,,,, Flomax,,,,, CloPIdogrel,,,,, FeNOfibrate,,,,, BisOPROLOL,,,,, FluTICASONE,,,,, Finasteride,,,,, Cyclobenzaprine,,,,, Nitroglycerin,,,,, Pantoprozole,,,,, Stress Test Details Test: Dinh HR Resting HR: 70 bpm Max Heart Rate (APMHR): 153.560215 bpm Max HR Achieved: 114 bpm Target HR (85% APMHR): 130.556485 bpm % of APMHR: 74.51 Recovery HR: 70 bpm BP Resting BP: 113.0/76.0 mmHg Max BP: 138.0/78.0 mmHg Recovery BP: 110.0/73.0 mmHg ECG Resting ECG: Normal sinus rhythm, cannot rule out old inferolateral [place] Clinical Exercise duration: 06:00 min Highest Stage Achieved: Exercise capacity: 7.0 METs Stress ECG Conclusion Patient exercised 6:00 on Dinh Protocol. Test stopped due to shortness of air and fatigue. Symptoms: No chest pain. Arrhythmias/Ectopy: Occasional PAC and PVC ST-T Changes: ST response to exercise is within normal. Conclusion: Normal GXT to heart rate achieved (75% of PM), Blunted heart rate response on Bisoprolol. GXT only (no imaging). Electronically signed by : Teofilo Chavarria MD 06/27/2021 17:34:10
== END ==
PROVIDERS: PCP Family Medicine; Visit Provider Family Medicine
DX: I25.10 Atherosclerotic heart disease of native coronary artery without angina pectoris (principal)
CPT/HCPCS: 93017

== ENCOUNTER 2021-08-30 11:19 | Emergency (ER) | payer OTHER, SELFPAY ==
[2021-08-30 12:00] VITALS: BP 112/73; PULSE 72; RESP 20; TEMP 36.7; O2SAT 97; BMI 30.1
--- NOTE | 2021-08-30 12:43 | HMH.EDUTC ---
[facility] [place] Clinical Impression: Need for Tdap vaccination Laceration of right hand Qualifiers: Encounter type: initial encounter Foreign body presence: without foreign body Qualified Code(s): S61.411A - Laceration without foreign body of right hand, initial encounter Disposition: Home, Self-Care Condition on Discharge: Good Instructions: How to Care for a Laceration After Repair, Tetanus, Diphtheria, Pertussis (Tdap) Vaccine Additional Instructions: Keep the wound clean and dry. Keep a dressing on it if you are going to be getting it dirty. Watch the for signs of infection, such as redness, swelling, drainage, fever. etc. Give tylenol for pain. Follow up with your regular doctor. Return in 10 days to have the sutures removed. GO TO THE ER FOR ANY WORSENING SYMPTOMS OR CONCERNS. Prescriptions: cephALEXin [cephALEXin 500mg capsule] 500 mg PO Q6H 7 Days #28 cap Transmission Status: Received by [id number] Referrals: Osmel Villalobos MD [Primary Care Provider] - Time of Disposition: 13:30 Medical Decision Making - Medical Records Medical records reviewed: No: I reviewed the patient's medical records. - Navin Inquiry Pt receiving controlled substance: No Vital Signs: 08/30/21 12:00 08/30/21 13:04 Temperature 98.0 F 98.0 F Temperature Source Oral Pulse Rate 72 Pulse Rate [Right Brachial] 72 Respiratory Rate 20 20 Blood Pressure 112/73 Blood Pressure [Right Arm] 112/73 Blood Pressure Mean [Right Arm] 86 Blood Pressure Source [Right Arm] Automatic Cuff Blood Pressure Position [Right Arm] Sitting 02 Sat by Pulse Oximetry 97 Oxygen Delivery Method Room Air Orders (Tests/Meds): ED MEDICATIONS Discontinued Medications Generic Name Dose Route Start Last Admin Trade Name Freq PRN Reason Stop Dose Admin Tetanus/Reduced Diphtheria/Acell Pertussis 0.5 ml 08/30/21 12:43 08/30/21 13:00 Tet/Diphth/Pert-Adult 0.5ml Syringe IM 08/30/21 12:44 0.5 ml .ONCE ONE Administration [facility] [place] - General Stated complaint: WC rt hand laceration Time Seen by Provider: 08/30/21 12:35 Mode of Arrival: Ambulatory Source of Information: Patient Limitations: No Limitations Description of Symptoms (Recalled from Triage Doc. by RN): PATIENT C/O LACERATION TO RIGHT HAND. 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 His tetanus immunization is not up to date. - Related Data Home Medications Medication Instructions Recorded Confirmed nitroglycerin 0.4 mg sublingual 0.4 mg SUBLINGUAL Q5M PRN 12/02/17 06/21/21 tablet tamsulosin 0.4 mg capsule 0.4 mg PO QDAY 12/02/17 06/21/21 finasteride 5 mg tablet 5 mg PO DAILY tab 11/17/19 06/21/21 Fluticasone Propionate 1 spray INTRANASAL DAILY 04/14/20 06/21/21 cyclobenzaprine 5 mg tablet 5 mg PO DAILY PRN 05/30/20 06/21/21 Previous Rx's Medication Instructions Recorded aspirin 81 mg tablet,delayed See Rx Instructions .ROUTE 01/09/21 release .COMPLEX #100 tab clopidogrel 75 mg tablet See Rx Instructions .ROUTE 01/09/21 .COMPLEX #90 tab fenofibrate nanocrystallized 145 See Rx Instructions .ROUTE 01/09/21 mg tablet .COMPLEX #90 tab pantoprazole 40 mg tablet,delayed See Rx Instructions .ROUTE 01/09/21 release .COMPLEX #90 tab atorvastatin 80 mg tablet 80 mg PO DAILY #90 tab 06/27/21 bisoprolol fumarate 10 mg tablet See Rx Instructions .ROUTE 08/24/21 .COMPLEX #90 tab cephALEXin [cephALEXin 500mg 500 mg PO Q6H 7 Days #28 cap 08/30/21 capsule] Allergies Allergy/AdvReac Type Severity Reaction Status Date /
[2021-08-30 13:04] VITALS: BP 112/73; PULSE 72; RESP 20; TEMP 36.7; O2SAT 97
== END 2021-08-30 13:34 | disposition home or self-care (01) ==
PROVIDERS: Emergency Provider Nurse Practitioner Family; PCP Family Medicine
DX: S61.411A Laceration without foreign body of right hand, initial encounter (principal); W26.8XXA Contact with other sharp object(s), not elsewhere classified, initial encounter; Y92.79 Other farm location as the place of occurrence of the external cause; I25.10 Atherosclerotic heart disease of native coronary artery without angina pectoris; E78.5 Hyperlipidemia, unspecified; I25.2 Old myocardial infarction; Z23 Encounter for immunization
CPT/HCPCS: 12001; 90471; 90715; 99202; G0463

== ENCOUNTER → 2021-11-09 07:49 | Outpatient (CLI) | payer MEDICARE, BC, SELFPAY ==
[2021-11-09 07:53] LABS: Microscopic, Urine URINE MICROSCOPIC (MICROSCOPIC)
[2021-11-09 08:15] LABS: Basophils # 0.1 K/mm3 (0-0.2); Basophils % 1.6 % (0.1-2.0); Eosinophils # 0.3 K/mm3 (0.0-0.4); Eosinophils % 6.2 % (0.1-12.0); Hematocrit 50.8 % (42.0-52.0); Hemoglobin 16.1 g/dL (14.1-18.0); Lymphocytes # 1.5 K/mm3 (0.7-4.5); Lymphocytes % 33.1 % (10-50); Mean Corpuscular HGB Conc 31.7 g/dL (31.8-35.4); Mean Corpuscular Hemoglobin 31.7 pg (27.0-31.2); Mean Corpuscular Volume 99.9 fl (80-94); Monocytes # 0.5 K/mm3 (0.1-1.0); Monocytes % 9.8 % (1.7-9.3); Neutrophils # 2.3 K/mm3 (1.8-7.8); Neutrophils % 49.3 % (37.0-80.0); Platelet Count 207 K/mm3 (142-424); Red Blood Count 5.08 M/mm3 (4.60-6.20); Red Cell Distribution Width 13.6 % (11.5-17.5); White Blood Count 4.7 K/mm3 (4.8-10.8)
[2021-11-09 08:42] LABS: Albumin Level 4.2 g/dl (3.5-5.0); Anion Gap 11.2 mEq/L (5-15); Blood Urea Nitrogen 19 mg/dl (9-20); Calcium 9.1 mg/dl (8.4-10.2); Carbon Dioxide 26 mmol/L (22.0-30.0); Chloride 107 mmol/L (98-107); Estimated Glomerular Filt Rate 50 ml/min (>60); GFR (African American) 61 ML/MIN (>60); Glucose 89 mg/dl (74-100); Phosphorous 3.5 mg/dl (2.5-4.5); Potassium 4.2 mmoL/L (3.5-5.1); Sodium 140 mmol/L (136-145)
[2021-11-09 08:54] LABS: Intact Parathyroid Hormone 52.8 pg/mL (7.5-53.5)
[2021-11-09 09:25] LABS: Appearance,Urine CLEAR (Clear); Bilirubin,Urine Negative (Negative); Blood, Urine Negative (Negative); Color,Urine YELLOW (Yellow); Glucose,Urine (UA) Negative (Negative); Ketones,Urine Negative (Negative); Leukocyte Esterase,Urine Negative (Negative); Nitrate,Urine Negative (Negative); Protein,Urine Negative (Negative); Specific Gravity, Urine 1.025 (1.005-1.030); Urobilinogen,Urine 0.2 EU/dl (0.2)
[2021-11-09 09:40] LABS: Creatinine,Urine Random 176 mg/dL (Not Estab.); Total Protein,Urine Random < 5.0 mg/dL (0.0-12.0)
[2021-11-10 14:40] LABS: Calcium, Ionized 5.2 mg/dL (4.5-5.6)
== END ==
PROVIDERS: Visit Provider Internal Medicine Nephrology
DX: N18.30 Chronic kidney disease, stage 3 unspecified (principal)
CPT/HCPCS: 36415; 80069; 81001; 82306; 82330; 82570; 83970; 84155; 85025

== ENCOUNTER → 2021-11-13 13:32 | Outpatient (POV) | payer BC, MEDICARE, SELFPAY | PROVIDERS: Visit Provider Internal Medicine Nephrology | DX: Z00.00 Encounter for general adult medical examination without abnormal findings (principal) ==

== ENCOUNTER → 2022-03-01 07:01 | Outpatient (CLI) | payer MEDICARE, BC, SELFPAY ==
[2022-03-02 08:17] LABS: PSA, Free 1.18 ng/mL; Prostate Specific Ag 5.2 ng/mL (0.0-4.0)
== END ==
PROVIDERS: Visit Provider Urology
DX: N40.1 Benign prostatic hyperplasia with lower urinary tract symptoms (principal)
CPT/HCPCS: 36415; 84153; 84154

== ENCOUNTER → 2022-07-23 10:17 | Outpatient (CLI) | payer MEDICARE, BC, SELFPAY ==
[2022-07-23 10:39] LABS: Basophils # 0.1 K/mm3 (0-0.2); Basophils % 1.6 % (0.1-2.0); Eosinophils # 0.2 K/mm3 (0.0-0.4); Hematocrit 48.2 % (42.0-52.0); Hemoglobin 15.4 g/dL (14.1-18.0); Lymphocytes # 1.1 K/mm3 (0.7-4.5); Lymphocytes % 32.8 % (10-50); Mean Corpuscular HGB Conc 31.9 g/dL (31.8-35.4); Mean Corpuscular Hemoglobin 31.6 pg (27.0-31.2); Mean Corpuscular Volume 98.9 fl (80-94); Mean Platelet Volume 8.9 fl (7.4-10.4); Monocytes # 0.3 K/mm3 (0.1-1.0); Monocytes % 9.5 % (1.7-9.3); Neutrophils # 1.7 K/mm3 (1.8-7.8); Neutrophils % 50.1 % (37.0-80.0); Platelet Count 185 K/mm3 (142-424); Red Blood Count 4.87 M/mm3 (4.60-6.20); Red Cell Distribution Width 14.5 % (11.5-17.5); White Blood Count 3.5 K/mm3 (4.8-10.8)
[2022-07-23 11:24] LABS: Chloride 106 mmol/L (98-107); Sodium 143 mmol/L (136-145)
[2022-07-23 11:25] LABS: Potassium 4.3 mmoL/L (3.5-5.1)
[2022-07-23 11:27] LABS: Alanine Aminotransferase 27 U/L (12-78); Albumin Level 4.2 g/dl (3.5-5.0); Alkaline Phosphatase 62 U/L (38-126); Anion Gap 12.3 mEq/L (5-15); Aspartate Amino Transferase 44 U/L (17-59); Bilirubin,Indirect 0.4 mg/dL (0.0-0.9); Bilirubin,Total 0.4 mg/dl (0.2-1.3); Bilirubin,Unconjugated 0.4 mg/dL (0.0-1.1); Blood Urea Nitrogen 15 mg/dl (9-20); Carbon Dioxide 29 mmol/L (22.0-30.0); Cholesterol 133 mg/dl (140-200); Estimated Glomerular Filt Rate 55 ml/min (>60); GFR (African American) 66 ML/MIN (>60); Glucose 89 mg/dl (74-100); Magnesium 1.5 mg/dl (1.6-2.3); Total Protein,Serum 6.4 g/dl (6.3-8.2); Triglycerides 155 mg/dl (30-150); VLDL Cholesterol 31 mg/dL (0-40)
[2022-07-23 11:28] LABS: Chol/HDL Ratio 4.8 (1-3.5); HDL Cholesterol 28 mg/dl (40-60)
[2022-07-23 11:39] LABS: Direct LDL Cholesterol 78.68 mg/dL (100-129)
[2022-07-23 11:41] LABS: Free T4 (Free Thyroxine) 0.96 ng/dl (0.78-2.19)
[2022-07-23 12:00] LABS: Thyroid Stimulating Hormone 2.55 uIU/mL (0.465-4.68)
== END ==
PROVIDERS: PCP Family Medicine; Visit Provider Nurse Practitioner Family
DX: E78.2 Mixed hyperlipidemia (principal); I11.9 Hypertensive heart disease without heart failure; I25.10 Atherosclerotic heart disease of native coronary artery without angina pectoris; R06.00 Dyspnea, unspecified; R42 Dizziness and giddiness; Z95.0 Presence of cardiac pacemaker; Z95.5 Presence of coronary angioplasty implant and graft; I42.8 Other cardiomyopathies
CPT/HCPCS: 36415; 80048; 80061; 80076; 83735; 84439; 84443; 85025

== ENCOUNTER → 2022-12-04 09:04 | Outpatient (CLI) | payer MEDICARE, BC, SELFPAY ==
[2022-12-04 09:13] LABS: Microscopic, Urine URINE MICROSCOPIC (MICROSCOPIC)
[2022-12-04 09:54] LABS: Basophils # 0.1 K/mm3 (0-0.2); Basophils % 2.2 % (0.1-2.0); Eosinophils # 0.3 K/mm3 (0.0-0.4); Eosinophils % 6.1 % (0.1-12.0); Hematocrit 47.4 % (42.0-52.0); Hemoglobin 15.5 g/dL (14.1-18.0); Lymphocytes # 1.6 K/mm3 (0.7-4.5); Lymphocytes % 35.8 % (10-50); Mean Corpuscular HGB Conc 32.6 g/dL (31.8-35.4); Mean Corpuscular Hemoglobin 31.6 pg (27.0-31.2); Mean Corpuscular Volume 96.8 fl (80-94); Mean Platelet Volume 7.7 fl (7.4-10.4); Monocytes # 0.3 K/mm3 (0.1-1.0); Monocytes % 7.9 % (1.7-9.3); Neutrophils # 2.1 K/mm3 (1.8-7.8); Neutrophils % 47.9 % (37.0-80.0); Platelet Count 187 K/mm3 (142-424); Red Cell Distribution Width 13.7 % (11.5-17.5); White Blood Count 4.4 K/mm3 (4.8-10.8)
[2022-12-04 10:06] LABS: Appearance,Urine CLEAR (Clear); Bilirubin,Urine Negative (Negative); Blood, Urine Negative (Negative); Color,Urine YELLOW (Yellow); Glucose,Urine (UA) Negative (Negative); Ketones,Urine Negative (Negative); Leukocyte Esterase,Urine Negative (Negative); Nitrate,Urine Negative (Negative); Protein,Urine Negative (Negative); Urobilinogen,Urine 0.2 EU/dl (0.2)
[2022-12-04 10:30] LABS: Albumin Level 4.2 g/dl (3.5-5.0); Anion Gap 8.5 mEq/L (5-15); Blood Urea Nitrogen 18 mg/dl (9-20); Calcium 8.8 mg/dl (8.4-10.2); Carbon Dioxide 26 mmol/L (22.0-30.0); Chloride 110 mmol/L (98-107); Estimated Glomerular Filt Rate 50 ml/min (>60); GFR (African American) 61 ML/MIN (>60); Glucose 94 mg/dl (74-100); Phosphorous 2.9 mg/dl (2.5-4.5); Potassium 4.5 mmoL/L (3.5-5.1); Sodium 140 mmol/L (136-145)
[2022-12-04 10:40] LABS: Creatinine,Urine Random 112 mg/dL (Not Estab.); Total Protein,Urine Random < 5.0 mg/dL (0.0-12.0)
[2022-12-04 10:42] LABS: Intact Parathyroid Hormone 46.9 pg/mL (7.5-53.5)
[2022-12-04 10:48] LABS: 25-OH Vitamin D, Total 31.3 ng/mL (30-100)
[2022-12-04 11:05] LABS: Squamous Epithelial Cell,Urine Occasional #/hpf (0-5); WBC,Urine Occasional #/hpf (0-3)
== END ==
PROVIDERS: PCP Family Medicine; Visit Provider Internal Medicine Nephrology
DX: N18.30 Chronic kidney disease, stage 3 unspecified (principal)
CPT/HCPCS: 36415; 80069; 81001; 82306; 82570; 83970; 84155; 85025

== ENCOUNTER → 2022-12-06 15:42 | Outpatient (POV) | payer MEDICARE, BC, SELFPAY | PROVIDERS: Visit Provider Internal Medicine Nephrology | DX: Z00.00 Encounter for general adult medical examination without abnormal findings (principal) ==

== ENCOUNTER → 2023-07-04 16:47 | Outpatient (CLI) | payer MEDICARE, BC, OTHER, SELFPAY ==
[2023-07-04 16:13] LABS: Eosinophils # 0.2 K/mm3 (0.0-0.4); Eosinophils % 4.8 % (0.1-12.0); Hematocrit 53.6 % (42.0-52.0); Hemoglobin 16.9 g/dL (14.1-18.0); Lymphocytes # 1.5 K/mm3 (0.7-4.5); Lymphocytes % 33.1 % (10-50); Mean Corpuscular HGB Conc 31.6 g/dL (31.8-35.4); Mean Corpuscular Hemoglobin 31.5 pg (27.0-31.2); Mean Corpuscular Volume 99.8 fl (80-94); Mean Platelet Volume 8.9 fl (7.4-10.4); Monocytes # 0.4 K/mm3 (0.1-1.0); Monocytes % 7.9 % (1.7-9.3); Neutrophils # 2.3 K/mm3 (1.8-7.8); Neutrophils % 53.2 % (37.0-80.0); Platelet Count 191 K/mm3 (142-424); Red Blood Count 5.37 M/mm3 (4.60-6.20); Red Cell Distribution Width 13.5 % (11.5-17.5); White Blood Count 4.4 K/mm3 (4.8-10.8)
[2023-07-04 18:06] LABS: Chloride 105 mmol/L (98-107); Potassium 4.8 mmoL/L (3.5-5.1); Sodium 144 mmol/L (136-145)
[2023-07-04 18:08] LABS: Alanine Aminotransferase 30 U/L (12-78); Aspartate Amino Transferase 49 U/L (17-59); Blood Urea Nitrogen 25 mg/dl (9-20); Estimated Glomerular Filt Rate 50 ml/min (>60); GFR (African American) 61 ML/MIN (>60)
[2023-07-04 18:09] LABS: Albumin Level 4.5 g/dl (3.5-5.0); Albumin/Globulin Ratio 1.5 (1.1-1.8); Alkaline Phosphatase 85 U/L (38-126); Anion Gap 18.8 mEq/L (5-15); Bilirubin,Total 0.6 mg/dl (0.2-1.3); Calcium 9.6 mg/dl (8.4-10.2); Carbon Dioxide 25 mmol/L (22.0-30.0); Chol/HDL Ratio 6.1 (1-3.5); Cholesterol 153 mg/dl (140-200); Glucose 77 mg/dl (74-100); HDL Cholesterol 25 mg/dl (40-60); Total Protein,Serum 7.5 g/dl (6.3-8.2); Triglycerides 192 mg/dl (30-150); VLDL Cholesterol 38 mg/dL (0-40)
[2023-07-04 18:20] LABS: Direct LDL Cholesterol 97.62 mg/dL (100-129)
[2023-07-04 18:22] LABS: Free T4 (Free Thyroxine) 1.09 ng/dl (0.78-2.19)
[2023-07-04 18:38] LABS: Thyroid Stimulating Hormone 3.08 uIU/mL (0.465-4.68)
== END ==
PROVIDERS: PCP Internal Medicine; Visit Provider Internal Medicine
DX: Z00.00 Encounter for general adult medical examination without abnormal findings (principal); E78.2 Mixed hyperlipidemia; I25.10 Atherosclerotic heart disease of native coronary artery without angina pectoris; Z79.899 Other long term (current) drug therapy
CPT/HCPCS: 80053; 80061; 84439; 84443; 85025

== ENCOUNTER → 2023-08-08 08:34 | Outpatient (CLI) | payer MEDICARE, BC, OTHER, SELFPAY ==
--- NOTE | 2023-08-08 08:37 | CA_ITS ---
APPROVED REPORT EXAM: Comprehensive 2D, Doppler, and color-flow Echocardiogram [employer] Education Director: Bianca Avendano, RCS, RVS Ht: 5 ft 10 in Wt: 219lbs BSA: 2.17 BP: 110/77 mmHg Indications: CM, CAD, PACER, HTN, HLD 2D Dimensions IVSd 1.18 cm LVEF (Visual) 45.20 % PWd 1.30 cm LVDd 4.91 cm LVDs 3.43 cm M-Mode Dimensions RVDd 2.94 cm (0.9-2.6) LA Diam 4.37 cm (1.9-4.0) LVDd 4.95 cm (3.5-5.7) Ao Diam 3.68 cm (2.0-3.7) LVDs 4.05 cm (3.5-5.7) IVSd 1.16 cm (0.6-1.1) PWd 0.94 cm (0.6-1.1) EF (Teich) 42.80% EPSs 0.99 cm FS 21.20% EDV (Teich) 126.10 mL TAPSE 2.43 (<1.7) ESV (Teich) 72.10 mL LV Diastology E Decel Time 390.00 (160-240 msec) E/A Ratio 0.51 MED E' 4.70 (< 7 cm/sec) MED A' 7.80 cm/s E'/MED E' Ratio 6.79 (>14) LAT E' 3.80 (<10 cm/sec) LAT A' 7.50 cm/s E/LAT E' Ratio 8.39 (>14) Aortic Valve LVOT Max 68.00 (70-110 cm/s) LVOT VTI 18.70 cm AoV Peak Evelio. 88.00 (50-130 cm/s) AO Peak GR. 3.10 mmHg AO Mean GR. 1.50 (<5 mmHg) AO VTI 15.58 (18-25 cm) Mitral Valve MV A Velocity 62.00 (40-130 cm/s) E/A Ratio 0.51 MV Decel. Time 390.00 (160-240 ms) MV Mean Gr. 0.70 (<2mmHg) Pulmonary Valve PV Peak Velocity 57.00 (50-150 cm/s) Tricuspid Valve TR P. Velocity 239.00 cm/s Left Ventricle The left ventricle is normal size. Left ventricular systolic function is mildly decreased. There is increased LV wall thickness. There is mild global hypokinesis. There is moderate hypokinesis of the inferior and inferoseptal LV luque. There is grade I diastolic dysfunction present. LVEF is 45%. Right Ventricle The right ventricle is normal size. The right ventricular systolic function is normal. There is a device lead in the right ventricle. Atria The left atrium size is normal. The right atrium size is normal. The interatrial septum is not well visualized. Aortic Valve The aortic valve opens well. There is no aortic valvular stenosis. Trace aortic regurgitation. Mitral Valve Mild mitral annular calcification (MAC). The mitral valve leaflets are mildly thickened. No evidence of mitral valve stenosis. Mild mitral regurgitation. Tricuspid Valve The tricuspid valve leaflets are thin and pliable. Trace tricuspid regurgitation. There is insufficient TR jet to estimate RVSP. Pulmonic Valve The pulmonary valve is normal in structure. Trace pulmonic regurgitation. Great Vessels The aortic root is normal in size. The ascending aorta is not well visualized. IVC is normal in size and collapses >50% with inspiration. Pericardium There is no pericardial effusion. Other Information Study Quality: Fair Conclusion Mildly reduced LV systolic function (LVEF 45%). Moderate hypokinesis of the inferior and inferoseptal LV luque. Mild MR. Electronically signed by : Shannon Jacob MD 08/10/2023 19:39:47
== END ==
PROVIDERS: PCP Internal Medicine; Visit Provider Physician Assistant
DX: E78.5 Hyperlipidemia, unspecified (principal); I11.9 Hypertensive heart disease without heart failure; I25.10 Atherosclerotic heart disease of native coronary artery without angina pectoris; R42 Dizziness and giddiness; Z95.0 Presence of cardiac pacemaker; Z95.5 Presence of coronary angioplasty implant and graft; I42.8 Other cardiomyopathies
CPT/HCPCS: 93306

== ENCOUNTER → 2023-09-10 10:52 | Outpatient (POV) | payer MEDICARE, BC, OTHER, SELFPAY | PROVIDERS: Visit Provider Specialist/Technologist | DX: Z00.00 Encounter for general adult medical examination without abnormal findings (principal) ==

== ENCOUNTER → 2023-09-30 16:49 | Outpatient (CLI) | payer MEDICARE, BC, OTHER, SELFPAY | PROVIDERS: PCP Nurse Practitioner Family; Visit Provider Nurse Practitioner Family | DX: R05.9 Cough, unspecified (principal) | CPT/HCPCS: 87635 ==

== ENCOUNTER 2023-12-02 14:07 | Outpatient (CLI) | payer MEDICARE, BC, OTHER, SELFPAY ==
[2023-12-02 14:16] LABS: Microscopic, Urine URINE MICROSCOPIC (MICROSCOPIC)
[2023-12-02 14:32] LABS: Appearance,Urine CLEAR (Clear); Bilirubin,Urine Negative (Negative); Blood, Urine Negative (Negative); Color,Urine YELLOW (Yellow); Glucose,Urine (UA) Negative (Negative); Ketones,Urine Negative (Negative); Leukocyte Esterase,Urine Negative (Negative); Nitrate,Urine Negative (Negative); Protein,Urine Negative (Negative); Specific Gravity, Urine 1.025 (1.005-1.030); Urobilinogen,Urine 0.2 EU/dl (0.2)
[2023-12-02 14:41] LABS: Creatinine,Urine Random 178 mg/dL (Not Estab.)
[2023-12-02 14:49] LABS: Bacteria,Urine Trace /lpf; RBC,Urine Occasional #/hpf (0-3); Squamous Epithelial Cell,Urine Occasional #/hpf (0-5); WBC,Urine Occasional #/hpf (0-3)
[2023-12-02 15:02] LABS: Albumin Level 4.1 g/dl (3.5-5.0); Anion Gap 11.4 mEq/L (5-15); Blood Urea Nitrogen 13 mg/dl (9-20); Calcium 9.1 mg/dl (8.4-10.2); Carbon Dioxide 30 mmol/L (22.0-30.0); Chloride 105 mmol/L (98-107); Estimated Glomerular Filt Rate 66 ml/min (>60); GFR (African American) 80 ML/MIN (>60); Glucose 128 mg/dl (74-100); Hematocrit 51.4 % (42.0-52.0); Hemoglobin 17.3 g/dL (14.1-18.0); Mean Corpuscular HGB Conc 33.7 g/dL (31.8-35.4); Mean Corpuscular Hemoglobin 32.1 pg (27.0-31.2); Mean Corpuscular Volume 95.4 fl (80-94); Phosphorous 3.4 mg/dl (2.5-4.5); Platelet Count 136 K/mm3 (142-424); Potassium 4.4 mmoL/L (3.5-5.1); Red Blood Count 5.39 M/mm3 (4.60-6.20); Sodium 142 mmol/L (136-145)
[2023-12-02 15:09] LABS: 25-OH Vitamin D, Total 30.9 ng/mL (30-100)
== END 2023-12-02 23:59 ==
LOC: LAB 14:08
PROVIDERS: PCP Internal Medicine; Visit Provider Internal Medicine Nephrology
DX: N18.30 Chronic kidney disease, stage 3 unspecified (principal); N18.4 Chronic kidney disease, stage 4 (severe); E55.9 Vitamin D deficiency, unspecified; Z79.899 Other long term (current) drug therapy
CPT/HCPCS: 36415; 80069; 81001; 82306; 82570; 84155; 85014; 85018; 85048; 85049

== ENCOUNTER 2023-12-05 15:12 | Outpatient (POV) | payer MEDICARE, BC, OTHER, SELFPAY | END 2023-12-05 23:59 | disposition home or self-care (01) | LOC: SC 15:13 | PROVIDERS: Visit Provider Internal Medicine Nephrology | DX: Z00.00 Encounter for general adult medical examination without abnormal findings (principal) ==

== ENCOUNTER 2024-04-27 07:17 | Outpatient (CLI) | payer MEDICARE, BC, OTHER, SELFPAY ==
[2024-04-27 07:53] LABS: Hemoglobin A1C 4.9 % (4.0-6.0)
[2024-04-27 08:33] LABS: Chloride 109 mmol/L (98-107); Potassium 4.1 mmoL/L (3.5-5.1); Sodium 143 mmol/L (136-145)
[2024-04-27 08:35] LABS: Bilirubin,Unconjugated 0.8 mg/dL (0.0-1.1); Blood Urea Nitrogen 13 mg/dl (9-20); Estimated Glomerular Filt Rate 74 ml/min (>60); GFR (African American) 89 ML/MIN (>60)
[2024-04-27 08:36] LABS: Alanine Aminotransferase 46 U/L (12-78); Albumin Level 3.8 g/dl (3.5-5.0); Alkaline Phosphatase 92 U/L (38-126); Anion Gap 10.1 mEq/L (5-15); Aspartate Amino Transferase 55 U/L (17-59); Bilirubin,Indirect 0.6 mg/dL (0.0-0.9); Bilirubin,Total 0.6 mg/dl (0.2-1.3); Calcium 9.2 mg/dl (8.4-10.2); Carbon Dioxide 28 mmol/L (22.0-30.0); Chol/HDL Ratio 2.6 (1-3.5); Cholesterol 96 mg/dl (140-200); Glucose 88 mg/dl (74-100); HDL Cholesterol 37 mg/dl (40-60); Total Protein,Serum 6.2 g/dl (6.3-8.2); Triglycerides 144 mg/dl (30-150); VLDL Cholesterol 29 mg/dL (0-40)
[2024-04-27 08:47] LABS: Direct LDL Cholesterol 37.89 mg/dL (100-129)
== END 2024-04-27 23:59 | disposition home or self-care (01) ==
LOC: LAB 07:18
PROVIDERS: PCP Internal Medicine; Visit Provider Physician Assistant
DX: R73.03 Prediabetes (principal); I11.9 Hypertensive heart disease without heart failure; K21.9 Gastro-esophageal reflux disease without esophagitis; R42 Dizziness and giddiness
CPT/HCPCS: 80048; 80061; 80076; 83036

== ENCOUNTER 2025-01-06 07:35 | Outpatient (CLI) | payer MEDICARE, BC, OTHER, SELFPAY ==
[2025-01-06 07:46] LABS: Microscopic, Urine URINE MICROSCOPIC (MICROSCOPIC)
[2025-01-06 08:43] LABS: Hematocrit 47.1 % (42.0-52.0); Mean Corpuscular Hemoglobin 32.1 pg (27.0-31.2); Mean Corpuscular Volume 94.6 fl (80-94); Platelet Count 127 K/mm3 (142-424); Red Blood Count 4.98 M/mm3 (4.60-6.20); Red Cell Distribution Width 12.9 % (11.5-17.5)
[2025-01-06 08:46] LABS: Appearance,Urine CLEAR (Clear); Bilirubin,Urine Negative (Negative); Blood, Urine Negative (Negative); Color,Urine YELLOW (Yellow); Glucose,Urine (UA) Negative (Negative); Ketones,Urine Negative (Negative); Leukocyte Esterase,Urine Negative (Negative); Nitrate,Urine Negative (Negative); Protein,Urine Negative (Negative); Specific Gravity, Urine 1.025 (1.005-1.030); Urobilinogen,Urine 0.2 EU/dl (0.2)
[2025-01-06 09:21] LABS: Creatinine,Urine Random 156 mg/dL (Not Estab.)
[2025-01-06 09:50] LABS: Anion Gap 10.4 mEq/L (5-15); Blood Urea Nitrogen 14 mg/dl (9-20); Calcium 8.8 mg/dl (8.4-10.2); Carbon Dioxide 26 mmol/L (22.0-30.0); Chloride 108 mmol/L (98-107); Estimated Glomerular Filt Rate 83 ml/min (>60); GFR (African American) 101 ML/MIN (>60); Glucose 96 mg/dl (74-100); Phosphorous 2.9 mg/dl (2.5-4.5); Potassium 4.4 mmoL/L (3.5-5.1); Sodium 140 mmol/L (136-145)
== END 2025-01-06 23:59 | disposition home or self-care (01) ==
LOC: LAB 07:38
PROVIDERS: PCP Internal Medicine; Visit Provider Internal Medicine Nephrology
DX: N18.30 Chronic kidney disease, stage 3 unspecified (principal)
CPT/HCPCS: 36415; 80069; 81001; 82570; 84156; 85027

== ENCOUNTER 2025-03-22 10:44 | Outpatient (CLI) | payer MEDICARE, BC, OTHER, SELFPAY ==
--- NOTE | 2025-03-22 10:47 | XR_ITS ---
FINAL REPORT CLINICAL HISTORY: right elbow pain FINDINGS: 3 views of the elbow were obtained. There is no acute fracture or dislocation. The joint spaces are intact. There is not soft tissue abnormality. IMPRESSION: No acute fracture Reviewed, Interpreted and Dictated by Bronson Milan MD Transcribed by Kinsey Herring Authenticated and [facility]
--- OUTSIDE RECORDS SUMMARY | 2025-03-22 10:47 | XMS_ITS | Data Portability ---
Author Organization [facility] ADRIANA GarciaS [place] [facility] Address [address] [place] [address] Care Team Providers Care Laundry Folder Name Role Phone KRISTYN LAMAR Rn Clinical Documentation Assessment No assessment recorded. Plan of Treatment Reminders Order Date Submit Date Provider Last Modified By Organization Details Last Modified Time Details Appointments RECHECK 2024 02:30P M RONALD SOLIS MD Not available Not available Not available FOLLOW UP [facility] 2025 10:00A M KRISTYN FERRARA MD Not available Not available Not available Lab PSA, serum or plasma 2023 024 [facility], [address], [place], [address], 10/26/2024 11:58:21 urinalysi s panel, auto 2023 024 [email or web address] [facility], [address], [address], [place], [address], 10/26/2024 11:58:21 urinalysi s panel, auto 2023 024 [email or web address] [facility], [address], [address], [place], [address], 04/28/2024 16:56:46 PSA, serum or plasma 2023 024 [email or web address] [facility], [address], [address], [place], [address], 04/28/2024 16:56:47 Referral None recorded. Procedures None recorded. Surgeries None recorded. Imaging None recorded. Medication Orders levofloxa olvin 500 mg tablet 2023 [facility], [address], [address], 10/26/2024 11:58:31 sildenafi l (pulmonar y hypertens ion) 20 mg tablet 2023 024 [facility], [address] [place] [address], [address], 04/28/2024 16:56:46 tamsulosi n 0.4 mg capsule 2023 [facility], [address] [place] [address], [place], [address], 04/28/2024 16:56:47 finasteri de 5 mg tablet 2023 024 [facility], [address] [place] [address], [address], 04/28/2024 16:56:48 Patient TargetsNo targets recorded. Patient Instructions Encounter Date Encounter Id Patient Instructions Last Modified By Organization Details Last Modified Time 08/26/2024 [id number] Recommended returning to clinic in 6 months for FBSE Not available 08/26/2024 10:24:05 03/03/2025 [id number] Recommended returning to clinic in 1 year for FBSE [email or web address] Not available 03/03/2025 11:22:15 Reason for Referral None Reported. Results Created Date Observation Date Name Description Value Unit Range Abnormal Flag Note LastModifiedBy Organization Detail LastModifiedTime 06/25/20 24 04/28/2024 PSA, serum or plasm a PSA 5.4 NG/mL 0.0 - 4.0 Not Available [facility] [address], [place], [address], 04/28/2024 15:30:03 04/28/20 24 04/28/2024 urina lysis panel , auto Unknown Analyte Clean Catch Not Available [facility] [address] [facility] [address], [place], [address], 04/28/2024 14:38:31 04/28/20 24 04/28/2024 urina lysis panel , auto Unknown Analyte Yellow Not Available [facility] [address] [address], [place], [address], 04/28/2024 14:38:31 04/28/20 24 04/28/2024 urina lysis panel , auto Unknown Analyte Clear Not Available [facility] [address], [place], [address], 04/28/2024 14:38:31 04/28/20 24 04/28/2024 urina lysis panel , auto Unknown Analyte 1.015 Not Available [facility] [address], [place], [address], 04/28/2024 14:38:31 04/28/20 24 04/28/2024 urina lysis panel , auto Unknown Analyte 1.003- 1.035 Not Available [facility] [address], [place], [address], 04/28/2024 14:38:31 04/28/20 24 04/28/2024 urina lysis panel , auto Unknown Analyte 5.0 Not Available [facility] [address], [place], [address], 04/28/2024 14:38:31 04/28/20 24 04/28/2024 urina lysis panel , auto Unknown Analyte 5.0-8. 0 Not Available [facility] [address], [place], [address], 04/28/2024 14:38:31 04/28/20 24 04/28/2024 urina lysis panel , auto Unknown Analyte 25 Allyssa/ul Trace Not Available [facility] [address], [place], [address], 04/28/2024 14:38:31 04/28/20 24 04/28/2024 urina lysis panel , auto Unknown Analyte Negati ve Not Available [facility] [address], [place], [address], 04/28/2024 14:38:31 04/28/20 24 04/28/2024 urina lysis panel , auto Unknown Analyte Negati ve Not Available [facility] [address], [place], [address], 04/28/2024 14:38:31 04/28/20 24 04/28/2024 urina lysis panel , auto Unknown Analyte Negati ve Not Available [facility] [address], [place], [address], 04/28/2024 14:38:31 04/28/20 24 04/28/2024 urina lysis panel , auto Unknown Analyte Negati ve Not Available [facility] [address], [place], [address], 04/28/2024 14:38:31 04/28/20 24 04/28/2024 urina lysis panel , auto Unknown Analyte Negati ve Not Available [facility] [address], [place], [address], 04/28/2024 14:38:31 04/28/20 24 04/28/2024 urina lysis panel , auto Unknown Analyte Normal Not Available [facility] [address], [place], [address], 04/28/2024 14:38:31 04/28/20 24 04/28/2024 urina lysis panel , auto Unknown Analyte Normal Not Available [facility] [address], [place], [address], 04/28/2024 14:38:31 04/28/20 24 04/28/2024 urina lysis panel , auto Unknown Analyte Negati ve Not Available [facility] [address], [place], [address], 04/28/2024 14:38:31 04/28/20 24 04/28/2024 urina lysis panel , auto Unknown Analyte Negati ve Not Available [facility] [address], [place], [address], 04/28/2024 14:38:31 04/28/20 24 04/28/2024 urina lysis panel , auto Unknown Analyte Normal Not Available [facility] [address], [place], [address], 04/28/2024 14:38:31 04/28/20 24 04/28/2024 urina lysis panel , auto Unknown Analyte Normal 1 mg/dl Not Available [facility] [address], [place], [address], 04/28/2024 14:38:31 04/28/20 24 04/28/2024 urina lysis panel , auto Unknown Analyte 1 mg/dl (+) Not Available [facility] [address], [place], [address], 04/28/2024 14:38:31 04/28/20 24 04/28/2024 urina lysis panel , auto Unknown Analyte Negati ve Not Available [facility] [address], [place], [address], 04/28/2024 14:38:31 04/28/20 24 04/28/2024 urina lysis panel , auto Unknown Analyte Negati ve Not Available [facility] [address], [place], [address], 04/28/2024 14:38:31 04/28/20 24 04/28/2024 urina lysis panel , auto Unknown Analyte Negati ve Not Available [facility] [address], [place], [address], 04/28/2024 14:38:31 10/23/20 24 10/23/2024 urina lysis panel , auto Unknown Analyte Clean Catch Not Available [facility] [address], [place], [address], 10/23/2024 10:31:33 10/23/20 24 10/23/2024 urina lysis panel , auto Unknown Analyte Yellow Not Available [facility] [address], [place], [address], 10/23/2024 10:31:33 10/23/20 24 10/23/2024 urina lysis panel , auto Unknown Analyte Clear Not Available [facility] [address], [place], [address], 10/23/2024 10:31:33 10/23/20 24 10/23/2024 urina lysis panel , auto Unknown Analyte 1.020 Not Available [facility] [address], [place], [address], 10/23/2024 10:31:33 10/23/20 24 10/23/2024 urina lysis panel , auto Unknown Analyte 1.003- 1.035 Not Available [facility] [address], [place], [address], 10/23/2024 10:31:33 10/23/20 24 10/23/2024 urina lysis panel , auto Unknown Analyte 6.0 Not Available [facility] [address], [place], [address], 10/23/2024 10:31:33 10/23/20 24 10/23/2024 urina lysis panel , auto Unknown Analyte 5.0-8. 0 Not Available [facility] [address], [place], [address], 10/23/2024 10:31:33 10/23/20 24 10/23/2024 urina lysis panel , auto Unknown Analyte Negati ve Not Available [facility] [address], [place], [address], 10/23/2024 10:31:33 10/23/20 24 10/23/2024 urina lysis panel , auto Unknown Analyte Negati ve Not Available [facility] [address], [place], [address], 10/23/2024 10:31:33 10/23/20 24 10/23/2024 urina lysis panel , auto Unknown Analyte Negati ve Not Available [facility] [address], [place], [address], 10/23/2024 10:31:33 10/23/20 24 10/23/2024 urina lysis panel , auto Unknown Analyte Negati ve Not Available [facility] [address], [place], [address], 10/23/2024 10:31:33 10/23/20 24 10/23/2024 urina lysis panel , auto Unknown Analyte Negati ve Not Available [facility] [address], [place], [address], 10/23/2024 10:31:33 10/23/20 24 10/23/2024 urina lysis panel , auto Unknown Analyte Negati ve Not Available [facility] [address], [place], [address], 10/23/2024 10:31:33 10/23/20 24 10/23/2024 urina lysis panel , auto Unknown Analyte Normal Not Available [facility] [address], [place], [address], 10/23/2024 10:31:33 10/23/20 24 10/23/2024 urina lysis panel , auto Unknown Analyte Normal Not Available [facility] [address], [place], [address], 10/23/2024 10:31:33 10/23/20 24 10/23/2024 urina lysis panel , auto Unknown Analyte Negati ve Not Available [facility] [address], [place], [address], 10/23/2024 10:31:33 10/23/20 24 10/23/2024 urina lysis panel , auto Unknown Analyte Negati ve Not Available [facility] [address], [place], [address], 10/23/2024 10:31:33 10/23/20 24 10/23/2024 urina lysis panel , auto Unknown Analyte Normal Not Available [facility] [address], [place], [address], 10/23/2024 10:31:33 10/23/20 24 10/23/2024 urina lysis panel , auto Unknown Analyte Normal 1 mg/dl Not Available [facility] [address], [place], [address], 10/23/2024 10:31:33 10/23/20 24 10/23/2024 urina lysis panel , auto Unknown Analyte Negati ve Not Available [facility] [address], [place], [address], 10/23/2024 10:31:33 10/23/20 24 10/23/2024 urina lysis panel , auto Unknown Analyte Negati ve Not Available [facility] [address], [place], [address], 10/23/2024 10:31:33 10/23/20 24 10/23/2024 urina lysis panel , auto Unknown Analyte Negati ve Not Available [facility] [address], [place], [address], 10/23/2024 10:31:33 10/23/20 24 10/23/2024 urina lysis panel , auto Unknown Analyte Negati ve Not Available [facility] [address], [place], [address], 10/23/2024 10:31:33 10/23/20 24 10/23/2024 PSA, serum or plasm a PSA 5.7 NG/mL 0.0 - 4.0 Not Available [facility] [address], [place], [address], 10/23/2024 09:46:24 Result Notes None recorded. Problems Name Problem SNOMED Code Status Onset Date Resolution Date Notes Provider Name and Address Organization Details Recorded Time History of malignant neoplasm of skin 134808316 Active 024 Kiara Solares [facility] 10/23/202 4 10:23:51 Problem Notes None recorded. Procedures Surgical History Date Name Laterality Status Provider Name and Address Organization Details Recorded Time 5 GARFIELD - Meggan [place] completed [facility] 03/03/2025 11:28:21 4 DAK - Cryo [place] completed [facility] 02/21/2024 10:14:14 Unlisted px cardiac surgery completed Caprice Selena [facility] 07/29/2020 15:22:56 Imaging Results None recorded. Procedure Notes None recorded. Medical Equipment None Reported. Allergies No known drug allergies Medications Name Sig Start Date Stop Date Status Note LastModified by Organization Details LastModified Time Prescriptio n - Renewal active Not Available Not Available Not Available Prescriptio n - Prior Authorizati on Request active Not Available Not Available N ot Available promethazin e-DM 6.25 mg-15 mg/5 mL oral syrup TAKE 5 ML BY MOUTH EVERY 4 TO 6 HOURS NEEDED FOR COUGH active Not Available Not Available No t Available atorvastati n 80 mg tablet active Not Available Not Available Not Available cetirizine 10 mg tablet TAKE 1 TABLET BY MOUTH ONCE DAILY active Not Available Not Available No t Available azithromyci n 250 mg tablet TAKE 2 TABLETS BY MOUTH ON DAY 1, AND THEN TAKE 1 TABLET BY MOUTH ONCE A DAY ON DAY 2 THROUGH DAY 5 active Not Available Not Available No t Available hydrocodone 5 mg-acetamin ophen 325 mg tablet TAKE 1 TO 2 TABLETS BY MOUTH EVERY 4 TO 6 HOURS NEEDED (MAX OF 10 TABS PER DAY) active Not Available Not Available No t Available clopidogrel 75 mg tablet active Not Available Not Available Not Available fexofenadin e 180 mg tablet TAKE 1 TABLET BY MOUTH ONCE DAILY active Not Available Not Available No t Available aspirin 81 mg tablet,bird yed release active Not Available Not Available Not Available bisoprolol fumarate 10 mg tablet active Not Available Not Available No t Available tamsulosin 0.4 mg capsule TAKE ONE TABLET BY MOUTH DAILY 2023 active Not Available Not Available Not Avai lable cephalexin 500 mg capsule TAKE 1 CAPSULE BY MOUTH EVERY 6 HOURS FOR 7 DAYS 03/12 completed Not Available Not Available Not Available pantoprazol e 40 mg tablet,bird yed release active Not Available Not Available Not Available azelastine 137 mcg (0.1 %) nasal spray USE 2 SPRAY(S) IN EACH NOSTRIL TWICE DAILY FOR ALLERGIES active Not Available Not Available No t Available cefuroxime axetil 500 mg tablet Take 1 tablet every 12 hours by oral route. 03/12 completed Not Available Not Available Not Available levofloxaci n 500 mg tablet Take 1 tablet every 24 hours by oral route. 2023 active Not Available Not Available Not Avai lable methylpredn isolone 4 mg tablets in a dose pack TAKE BY MOUTH DIRECTED ON INSIDE OF PACKAGE active Not Available Not Available No t Available albuterol sulfate HFA 90 mcg/actuati on aerosol inhaler INHALE 2 PUFFS BY MOUTH EVERY 4 TO 6 HOURS NEEDED FOR SHORTNESS OF BREATH FOR WHEEZING active Not Available Not Available No t Available fluticasone propionate 50 mcg/actuati on nasal spray,suspe nsion USE 1 SPRAY(S) IN EACH NOSTRIL TWICE DAILY active Not Available Not Available No t Available finasteride 5 mg tablet TAKE 1 TABLET DAILY 2023 active Not Available Not Available Not Avai lable ezetimibe 10 mg tablet TAKE 1 TABLET BY MOUTH ONCE DAILY active Not Available Not Available No t Available sildenafil (pulmonary hypertensio n) 20 mg tablet Take by oral route for 90 days. active Not Available Not Available No t Available fenofibrate nanocrystal lized 145 mg tablet active Not Available Not Available No t Available Flowflex COVID-19 Antigen Home Test kit active Not Available Not Available Not Available Zepbound 2.5 mg/0.5 mL subcutaneou s pen injector INJECT 1 SYRINGE SUBCUTANE OUSLY ONCE A WEEK active Not Available Not Available No t Available Vitals Date Recorded Body height Body mass index (BMI) Body weight Provider Name and Address Organization Details Last Updated DateTime 04/28/2024 177.8 cm 28.7 kg/m2 91143.47 g Shikha Rodarte [facility] 04/28/2024 14:59:09 Date Recorded Body height Body mass index (BMI) Body weight Provider Name and Address Organization Details Last Updated DateTime 10/23/2024 177.8 cm 30.1 kg/m2 37175.4 g Shikha Rodarte [facility] 10/23/2024 10:31:10 Social History Question Answer Notes LastModified by Organizat ion Details LastModified Time Tobacco Smoking Status Never Smoker Porfirio Lopez [facility] 03/03/2025 11:06:11 Sunscreen Use? Yes [email or web address] Informatio n not available 03/03/2025 Tanning Bed Use No [email or web address] Informati on not available 03/03/2025 What Was The Date Of Your Most Recent Tobacco Screening? 03/03/2025 Information not available 03/03/2025 What Is Your Relationship Status? [email or web address] Information not available 08/22/2022 Sex: Male Functional Status Question Answer Note LastModified by Organization D etails LastModified Time Do you or have you ever used any other forms of tobacco or nicotine? No [email or web address] Information not available 03/03/2025 What is your level of alcohol consumption? None [email or web address] Information not available 08/22/2022 Mental Status None recorded. Family History Relationship Description Onset Age of this Age Resolved Age Notes LastModified by Organization Details LastModified Time Unspecified Relation Malignant neoplastic disease [email or web address] Not available 07/29 15:20:46 Unspecified Relation Myocardial infarction [email or web address] Not available 07/06 15:20:52 Medical History Condition Response Pacemaker Y Basal Cell Carcinoma Y Kidney Stones Y Skin Cancer Y Heart Attack ([place]) Y Heart Disease Y Past Encounters Encounter ID Performer Location Encounter Start Date Encounter Closed Date Diagnosis/Indication Diagnosis SNOMED-CT Code Diagnosis ICD10 Code Diagnosis Note [id number] LEXI LEVINE-C [facility]OS[facility]G DESIIraj SIMMONS [facility] [address] [place] [address] 07/29/2020 14:19:01 08/01/2020 09:52:40 Lumbar radiculopathy 996975146 M54.16 the patient is a 64-year-ol d male who presents today for lumbar pain that has been started 2-1/2 months ago. Patient states that he started experienci ng lumbar pain localized to the left that radiated down the left buttocks down the posterior aspect of the left thigh and left calf. The patient states that he has been seeing a chiropract or for the past few weeks and it has helped him tremendous ly and he is completely pain-free at this point. The patient states that he has no new concerns or complaints but felt he should keep his appointmen t with us to establish care at this time. The patient did have an x-ray of the lumbar spine and left hip performed on 05/09/[address] of the lumbar spine performed at an outside hospital. The patient did bring the disc with him.the images showed that he did have minimal disc bulges at L2-L3 and L3-L4. At this time since the patient is completely pain-free with the help of the chiropract or I advised him to continue with that and doing conservati ve management at home. I told him if the pain worsens to call us back and we can set him up for a CT myelogram. The patient has a pacemaker and cannot undergo an MRI. He knows to call the office with any further questions. The patient was agreeable to this plan. [id number] MD JAVAN [facility] [address] [address] 08/22/2022 15:19:12 08/22/2022 16:43:31 Benign prostatic hyperplasia with outflow obstruction 266329032 N40.1 We discussed additional options regarding his voiding symptoms. He'll continue on tamsulosin and finasterid e for now. Prostate s pecific antigen above reference range 201450157 R97.20 follow-up 6 months with PSA Chronic prostatitis 19899 N41.1 [id number] RONALD SOLIS MD [facility] [address] [place] [address] 03/12/2023 14:00:47 03/12/2023 15:04:37 Chronic prostatitis 76973538 N41.1 Benign pro static hyperplasia with outflow obstruction 118632963 N40.1 We discussed additional options regarding his voiding symptoms. He'll continue on tamsulosin and finasterid e for now. Prostate s pecific antigen above reference range 689213581 R97.20 follow-up 6 months with PSA [id number] RONALD SOLIS MD [facility] [address] [address] 10/23/2023 15:39:48 10/23/2023 17:36:37 Chronic prostatitis 87270948 N41.1 Doing well currently Prostate s pecific antigen above reference range 268887414 R97.20 follow-up 6 months with PSA [id number] KRISTYN FERRARA MD [address] [address] 02/04/2024 09:06:12 02/17/2024 10:25:09 [id number] KRISTYN FERRARA MD [address] [address] 02/21/2024 09:31:03 02/21/2024 10:27:34 Multiple benign melanocytic nevi [id number] D22.5 Benign appearing nevi noted on exam. Reassured. Monitor for changes and call us for appt if changing or worrisome. Recommende d daily SPF 30 (or higher) broad-spec trum sunscreen usage with re-applica tion every 2 hours, as well as sun protection measures, including wide-brimm ed hats, wearing of protective clothing, and avoidance of sun during peak hours of the day 10 am - 4 pm. Avoid tanning beds as these can increase chances of all 3 main types of skin cancers. Seborrheic keratosis [id number] L82.1 Seborrheic keratosis are benign but may be cosmetical ly bothersome . Cosmetic removal with liquid nitrogen is an option. This may leave discolorat ion, or the SK may persist or recur at the treatment site. Solar lentigo 01169102 L 81.4 - Benign brown spots - Sun-induce d Senile angioma 7034527 I 78.1 - Benign blood vessel growths - Hereditary History of malignant neoplasm of skin [id number] Z85.828 - No evidence of recurrence today- Call with any worrisome lesions or if treated lesions return- Return at regular intervals for skin exam as recommende d Most recent, 01/2023 Actinic keratosis [id number] L57.0 Actinic keratoses are precancero us lesions that may progress to squamous cell carcinoma if untreated. UV light and genetics may increase risk. Treated lesions should blister, scab over, and heal within a few weeks. If treated lesion(s) does not resolve within 1-2 months, patient agrees to follow up for re-evaluat ion. [id number] RONALD SOLIS MD [facility] [address] [place] [address] 04/28/2024 14:20:08 04/28/2024 15:53:36 Prostate specific antigen above reference range [id number] R97.20 follow-up 6 months with PSA Benign pro static hyperplasia with outflow obstruction [id number] N40.1 We discussed additional options regarding his voiding symptoms. He'll continue on tamsulosin and finasterid e for now. Primary er ectile dysfunction [id number] N52.9 [id number] KRISTYN FERRARA MD [address] [address] [place] [address] 08/26/2024 09:39:24 08/26/2024 10:34:17 History of malignant neoplasm of skin [id number] Z85.828 - No evidence of recurrence today- Call with any worrisome lesions or if treated lesions return- Return at regular intervals for skin exam as recommende d Most recent, 01/2023 Multiple b enign melanocytic nevi [id number] D22.5 - Benign moles seen on exam today - SPF 30 or higher broad-spec trum sunscreen recommende d with re-applica tion every 2 hours - Discussed sun protection measures, including wide-brimm ed hat, sun-protec tive clothing, and avoidance of sun during peak hours of 10am-4pm - Avoid tanning beds as these can increase the chances of all 3 types of skin cancer - Instructed to monitor for changes and to call us for appointmen t with any changing or worrisome lesions Seborrheic keratosis [id number] L82.1 - Benign overgrowth s of skin - Hereditary Senile angioma 0223584 I 78.1 - Benign blood vessel growths - Hereditary Solar lentigo 23250217 L 81.4 - Benign brown spots - Sun-induce d [id number] RONALD SOLIS MD [facility] [address] [place] [address] 10/23/2024 09:06:49 10/30/2024 13:05:00 Prostate specific antigen above reference range [id number] R97.20 follow-up 6 months with PSA Chronic prostatitis 1990 5009 N41.1 Doing well currently Benign pro static hyperplasia with outflow obstruction [id number] N40.1 We discussed additional options regarding his voiding symptoms. He'll continue on tamsulosin and finasterid e for now. [id number] KRISTYN FERRARA MD [address] [address] [place] [address] 03/03/2025 10:54:16 03/03/2025 11:42:43 History of malignant neoplasm of skin [id number] Z85.828 - No evidence of recurrence today- Call with any worrisome lesions or if treated lesions return- Return at regular intervals for skin exam as recommende d Most recent, 01/2023 Multiple b enign melanocytic nevi [id number] D22.5 - Benign moles seen on exam today - SPF 30 or higher broad-spec trum sunscreen recommende d with re-applica tion every 2 hours - Discussed sun protection measures, including wide-brimm ed hat, sun-protec tive clothing, and avoidance of sun during peak hours of 10am-4pm - Avoid tanning beds as these can increase the chances of all 3 types of skin cancer - Instructed to monitor for changes and to call us for appointmen t with any changing or worrisome lesions Seborrheic keratosis 394 501814 L82.1 - Benign overgrowth s of skin - Hereditary Solar lentigo 94390422 L 81.4 - Benign brown spots - Sun-induce d Senile angioma 7440948 I 78.1 - Benign blood vessel growths - Hereditary Actinic keratosis 722711 007 L57.0 Actinic keratoses are precancero us lesions that may progress to squamous cell carcinoma if untreated. UV light and genetics may increase risk. Treated lesions should blister, scab over, and heal within a few weeks. If treated lesion(s) does not resolve within 1-2 months, patient agrees to follow up for re-evaluat ion. Health Concerns Section Related Observation LastModified by Organization Detai ls LastModified Time None Recorded Concern Status LastModified by Organization Details LastModified Time None Recorded Advance Directives Directive None Recorded Payers Insurance Date Sequence Insurance Name Policy Number Policy Cooney Covered Member ID Cooney Member ID Guarantor Name 03/08/2025 2 [place]ACI[place] STAC[place] OF [place] BLUE ACCESS (PPO) [id number] R Nickie Bernard [id number] Ethan Thorne Joana 03/03/2025 1 [place] Ethan Bernard [id number] Ethan Bernard Notes Date Note Type Note Provider Name and Address Organization Details Recorded Time 02/21/2024 text/html 6mo skin checkhx of BCC - L proximal forearm, L anterior shoulder RKISTYN FERRARA MD [address] [place] [address], [phone], [facility] 02/24/2024 10:36:12 04/28/2024 text/html Patient is here to follow-up history of chronically elevated PSA as well as a long history of chronic prostatitis. PSA today was 5.4. His PSA in October was 9.1. He has had previous negative needle biopsies of the prostate about 3 years ago for PSA of 11.5. He continues on finasteride as well as tamsulosin. He has some hesitancy in the morning and poor flow but at this point he has reasonably satisfied. He mentions some difficulty achieving and maintaining adequate erections. We discussed a trial of sildenafil. We discussed titration of dosage as well as timing of dosage. RONALD SOLIS MD [address] [place] [address], [phone], [facility] 04/28/2024 16:57:06 08/26/2024 text/html Here for a full body skin examination - last skin check: 02/2024- history of skin cancer - {{BCC* SCC MM BCC and SCC BCC and MM SCC and MM BCC, SCC, and MM}}- last skin cancer was in {{/ L proximal forearm, 2022#}}- spots of concern today: no areas of concern today. KRISTYN FERRARA MD [address] [place] [address], [phone], [facility] 08/26/2024 15:45:37 10/23/2024 text/html Patient is here in follow-up of obstructive urination symptoms previous history of chronic prostatitis as well as urolithiasis. He continues to take tamsulosin 1 daily. His urine specimen today is unremarkable. He does occasionally have flareups of therapy in response if he starts Levaquin acutely. Currently he is symptom-free. He has had no recent stone issues. He is PSA at last visit in April was down to 5.4 and last October up to 9.1. He has had negative biopsies of the prostate for PSA previously of 11.5. He continues on finasteride as well as tamsulosin. PSA today is stable at 5.7. RONALD SOLIS MD [address] [place] [address] [place], [phone], [facility] 10/26/2024 11:59:31 03/03/2025 text/html Here for a full body skin examination - last skin check: 08/2024- history of skin cancer - {{BCC* SCC MM BCC and SCC BCC and MM SCC and MM BCC, SCC, and MM}}- last skin cancer was in {{/ L proximal forearm, 01/2023#}}- spots of concern today: pt reports spot on left anabaptist KRISTYN FERRARA MD [address] [place] [address] [place], [phone], [facility] 03/03/2025 12:11:31
[2025-03-22 14:04] LABS: C-Reactive Protein < 0.3 mg/L (0-4)
[2025-03-22 14:12] LABS: Uric Acid 6.5 mg/dl (3.5-8.5)
[2025-03-22 15:05] LABS: Erythrocyte Sedimentation Rate 3 mm/hr (0-20)
[2025-03-22 15:14] LABS: Basophils # 0.1 K/mm3 (0-0.2); Eosinophils # 0.1 Kmm3 (0.0-0.4); Eosinophils % 1.8 % (0.1-12.0); Hemoglobin 17.2 g/dL (14.1-18.0); Immature Granulocytes # 0.02 10^3uL; Immature Granulocytes % 0.4 %; Lymphocytes # 1.3 K/mm3 (0.7-4.5); Mean Corpuscular HGB Conc 33.7 g/dL (31.8-35.4); Mean Corpuscular Hemoglobin 32.4 pg (27.0-31.2); Mean Platelet Volume 10.2 fl (7.4-10.4); Monocytes # 0.5 K/mm3 (0.1-1.0); Monocytes % 10.6 % (1.7-9.3); Neutrophils # 2.9 K/mm3 (1.8-7.8); Neutrophils % 60.2 % (37.0-80.0); Nucleated Red Blood Cells # 0 10^3/uL; Nucleated Red Blood Cells % 0 %; Platelet Count 132 K/mm3 (142-424); Red Blood Count 5.31 M/mm3 (4.60-6.20); Red Cell Distribution Width 13.2 % (11.5-17.5); Red Cell Distribution Width-SD 47.2 fL; White Blood Count 4.9 K/mm3 (4.8-10.8)
== END 2025-03-22 23:59 | disposition home or self-care (01) ==
LOC: LAB 10:45 → RAD 10:48
PROVIDERS: PCP Nurse Practitioner Family; Visit Provider Nurse Practitioner Family
DX: M77.11 Lateral epicondylitis, right elbow (principal); R53.83 Other fatigue
CPT/HCPCS: 73080; 84550; 85025; 85651; 86140

== ENCOUNTER 2025-07-19 10:54 | Outpatient (CLI) | payer MEDICARE, BC, OTHER, SELFPAY ==
[2025-07-19 11:22] LABS: Hematocrit 44.3 % (42.0-52.0); Hemoglobin 15.5 g/dL (14.1-18.0); Immature Granulocytes % 0.7 %; Mean Corpuscular HGB Conc 35.0 g/dL (31.8-35.4); Mean Corpuscular Hemoglobin 33.1 pg (27.0-31.2); Mean Corpuscular Volume 94.7 fl (80-94); Nucleated Red Blood Cells % 0 %; Platelet Count 123 K/mm3 (142-424); Red Blood Count 4.68 M/mm3 (4.60-6.20); Red Cell Distribution Width-SD 43.2 fL; White Blood Count 6.1 K/mm3 (4.8-10.8)
[2025-07-19 11:54] LABS: Albumin Level 3.9 g/dl (3.5-5.0); Bilirubin,Unconjugated 0.7 mg/dL (0.0-1.1); Blood Urea Nitrogen 10 mg/dl (9-20); Calcium 8.7 mg/dl (8.4-10.2); Carbon Dioxide 27 mmol/L (22.0-30.0); Cholesterol 110 mg/dl (140-200); Creatinine,Serum 1.00 mg/dl (0.66-1.25); Estimated Glomerular Filt Rate 74 ml/min (>60); GFR (African American) 89 ML/MIN (>60); Glucose 105 mg/dl (74-100); HDL Cholesterol 39 mg/dl (40-60); Potassium 4.1 mmoL/L (3.5-5.1); Sodium 140 mmol/L (136-145); Total Protein,Serum 6.1 g/dl (6.3-8.2); Triglycerides 192 mg/dl (30-150)
[2025-07-19 11:55] LABS: Alanine Aminotransferase 24 U/L (12-78); Alkaline Phosphatase 71 U/L (38-126); Anion Gap 8.1 mEq/L (5-15); Aspartate Amino Transferase 32 U/L (17-59); Chloride 109 mmol/L (98-107); Magnesium 1.4 mg/dl (1.6-2.3)
[2025-07-19 11:58] LABS: Bilirubin,Total 0.8 mg/dl (0.2-1.3)
[2025-07-19 12:08] LABS: Free T4 (Free Thyroxine) 0.93 ng/dl (0.78-2.19)
[2025-07-19 13:10] LABS: Bilirubin,Direct 0.0 mg/dl (0.0-0.4); Bilirubin,Indirect 0.8 mg/dL (0.0-0.9)
[2025-07-19 13:38] LABS: Thyroid Stimulating Hormone 1.81 uIU/mL (0.465-4.68)
== END 2025-07-19 23:59 | disposition home or self-care (01) ==
LOC: LAB 10:56
PROVIDERS: PCP Internal Medicine; Visit Provider Nurse Practitioner
DX: E78.5 Hyperlipidemia, unspecified (principal); I11.9 Hypertensive heart disease without heart failure; I25.10 Atherosclerotic heart disease of native coronary artery without angina pectoris
CPT/HCPCS: 36415; 80048; 80061; 80076; 83735; 84439; 84443; 85025